=== PATIENT | female | born 1950 | race Caucasian/White ===

== ENCOUNTER → 2018-07-09 | Outpatient (CLI) | payer MEDICARE, OTHER ==
[2014-07-15 12:00] VITALS: BP 101/55
[~2018-07-09] MED LIST: ATOR20TA58 PO; BACL10TA PO; BUPR300T3 PO; CELE200C PO; ESCITALOPRAM OX20 MG PO; LISI2.5T PO; LORA0.5T PO; LOVA10TA PO; NAPR220T70 PO; PANT20TA2 PO; TRAM50TA PO
[2018-07-09 09:31] LABS: ALBUMIN 3.6 g/dL (3.4-5.0); CALCIUM 9.2 mg/dL (8.5-10.1); CREATININE 0.8 mg/dL (0.6-1.0); GFR 71.5
[2018-07-09 09:32] LABS: BASO % 1 % (0-3); EOS # 0.2 x10^3/uL (0.0-0.7); EOS % 5 % (0-3); HEMATOCRIT 41.9 % (36.0-47.0); HEMOGLOBIN 14.7 g/dL (12.0-15.5); LYMPH # 1.6 x10^3/uL (1.0-4.8); LYMPH % 34 % (24-48); MEAN CORPUSCULAR HEMOGLOBIN 31 pg (25-35); MEAN CORPUSCULAR HGB CONC 35 g/dL (31-37); MEAN CORPUSCULAR VOLUME 87 fL (79-100); MONO # 0.5 x10^3/uL (0.0-1.1); MONO % 10 % (0-9); NEUT # 2.2 x10^3uL (1.8-7.7); NEUT % 49 % (31-73); PLATELET COUNT 193 x10^3/uL (140-400); RED BLOOD COUNT 4.79 x10^6/uL (3.50-5.40); RED CELL DISTRIBUTION WIDTH 13.6 % (11.5-14.5); WHITE BLOOD COUNT 4.6 x10^3/uL (4.0-11.0)
[2018-07-09 10:04] LABS: PROTHROMBIN TIME PATIENT 12.9 SEC (11.7-14.0)
--- NOTE | 2018-07-09 13:36 | EKG ---
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
[2018-07-09 13:53] LABS: BILIRUBIN,URINE NEGATIVE (NEG); CLARITY,URINE CLEAR; COLOR,URINE YELLOW; NITRITE,URINE NEGATIVE (NEG); PROTEIN,URINE NEGATIVE (NEG-TRACE); UROBILINOGEN,URINE 0.2 mg/dL (0.2 mg/dL)
[2018-07-09 14:15] LABS: RBC,URINE 0 /HPF (0-2)
[2018-07-09 14:16] LABS: SQUAMOUS EPITHELIAL CELL,UR OCC /LPF
[2018-07-09 14:17] LABS: BACTERIA,URINE FEW /HPF (0-FEW); WBC,URINE RARE /HPF (0-4)
--- NOTE | 2018-07-09 15:51 | RAD ---
Chest, 2 views, 07/09/2018: HISTORY: Preop evaluation for joint surgery Comparison is made to a study from 07/15/2014. The patient's known large hiatal hernia is again noted in the left lower chest. The heart is probably within normal limits in size. There is tortuosity of the thoracic aorta. The pulmonary vascularity is normal. No pulmonary infiltrate is seen. There is a 1.7 cm nodule projected over the anterior mediastinum on the lateral view. It is not clearly visualized on the current PA view. A previous CT chest study of 07/01/2014 demonstrated this nodule in the anterior aspect of the left upper lobe. It appears to be of similar size. This has been previously biopsied. Correlation with those biopsy results is suggested. There is no evidence of pleural fluid. Scattered degenerative changes are present in the spine. IMPRESSION: 1. Large hiatal hernia. 2. Known left upper lobe pulmonary nodule as described above. 3. No acute infiltrates. Electronically signed by: Handy Cline MD (07/09/2018 3:48 PM) [facility]
== END | disposition home or self-care (01) ==
LOC: SURGPAT 13:08
PROVIDERS: ATTEND Orthopaedic Surgery
DX: Z01.818 Encounter for other preprocedural examination (principal); M17.12 Unilateral primary osteoarthritis, left knee; I10 Essential (primary) hypertension; K44.9 Diaphragmatic hernia without obstruction or gangrene; R91.1 Solitary pulmonary nodule
CPT/HCPCS: 36415; 71046; 80048; 81001; 82040; 82306; 85025; 85610; 85651; 85730; 87086; 87641; 93005

== ENCOUNTER 2018-07-31 08:43 | Inpatient (IN) | payer MEDICARE ==
--- NOTE | 2018-07-30 15:05 | PDOC1 ---
History and Physical Date of Admission Date of Admission DATE: 07/31/18 Identification/Chief Complaint Chief Complaint left knee pain Source Source: Chart review History of Present Illness History of Present Illness Aisha is a 67 year old female with bilateral knee pain. The left knee is more painful than the right. She states the left knee has worsened significantly since her last visit. She notes sharp pains in the right knee occasionally, and states it is often painful to weight bear or straighten leg following the sharp pain. The pain is sometimes severe enough that she will fall to the ground. Both knees pop and crack with movement. She denies any numbness or tingling. She received cortisone injections in bilateral knees and hips at her last visit on 01/02/17, which did not provide any symptomatic relief. She finished her last bilateral knee Orthovisc series on 12/05/16. She has also tried taking Meloxicam, which did not provide symptomatic relief. She arrived ambulating without assistive devices. Past Medical History Cardiovascular: HTN, Hyperlipidemia GI: GERD Psych: Anxiety, Depression Past Surgical History Past Surgical History: Cholecystectomy, Hysterectomy Family History Family History: Cancer, Heart Disease Social History Smoke: No ALCOHOL: none Drugs: None Current Medications Current Medications Current Medications Morphine Sulfate 5 mg/Ketorolac Tromethamine 30 mg/Ropivacaine 60 ml/ Epinephrine HCl 0.5 mg/Sodium Chloride 100 ml @ 100 mls/hr 1X ONCE INT ART ; Start 07/31/18 at 06:00; Stop 07/31/18 at 06:59 Fentanyl Citrate (Fentanyl 2ml Vial) 25 mcg PRN Q5MIN PRN IV MILD PAIN; Start 07/31/18 at 07:00; Stop 08/01/18 at 06:59 Fentanyl Citrate (Fentanyl 2ml Vial) 50 mcg PRN Q5MIN PRN IV MODERATE TO SEVERE PAIN; Start 07/31/18 at 07:00; Stop 08/01/18 at 06:59 Morphine Sulfate (Morphine Sulfate) 1 mg PRN Q10MIN PRN IV SEVERE PAIN; Start 07/31/18 at 07:00; Stop 08/01/18 at 06:59 Ringer's Solution 1,000 ml @ 30 mls/hr Q24H IV ; Start 07/31/18 at 07:00; Stop 07/31/18 at 18:59 Lidocaine HCl (Xylocaine-Mpf 1% 2ml Vial) 2 ml PRN 1X PRN ID PRIOR TO IV START ; Start 07/31/18 at 07:00; Stop 08/01/18 at 06:59 Hydromorphone HCl (Dilaudid) 0.5 mg PRN Q10MIN PRN IV SEV PAIN, Second choice; Start 07/31/18 at 07:00; Stop 08/01/18 at 06:59 Prochlorperazine Edisylate (Compazine) 5 mg PACU PRN PRN IV NAUSEA, MRX1; Start 07/31/18 at 07:00; Stop 08/01/18 at 06:59 Active Scripts Active Reported Wellbutrin Xl (Bupropion Hcl) 300 Mg Tab.er.24h 300 Mg PO DAILY Protonix (Pantoprazole Sodium) 20 Mg Tablet.dr 20 Mg PO DAILY Atorvastatin Calcium 20 Mg Tablet 20 Mg PO DAILY Aleve (Naproxen Sodium) 220 Mg Tablet 220 Mg PO BID Escitalopram Oxalate 20 Mg Tablet 20 Mg PO DAILY Lorazepam 0.5 Mg Tablet 1 Mg PO TID Lovastatin 10 Mg Tablet 40 Mg PO DAILY Lisinopril 2.5 Mg Tablet 10 Mg PO DAILY Allergies Allergies: Coded Allergies: No Known Drug Allergies (Unverified , 10/08/13) Physical Exam General: Alert, Oriented X3, Cooperative, No acute distress HEENT: EOMI Lungs: Normal air movement Heart: RRR Abdomen: Soft Extremities: No clubbing, No cyanosis, Normal pulses, Other (Upon inspection of the left knee, there are no masses or detectable effusion. Trace varus alignment. The left knee shows active range of motion from 0-125 degrees. There is crepitus felt with motion. Pain at the extreme of flexion. There is tenderness to palpation along the medial and lateral joint line. The knee is stable to varus and valgus stress, without subluxation or laxity. Quadriceps and hamstring show normal strength of 4+/5, with normal muscle tone. ) Skin: No rashes, No breakdown, No significant lesion Neuro: Normal speech, Sensation intact Psych/Mental Status: Mental status NL, Mood NL Images Images IMAGING REPORT Joint survey, hips knees and ankles Clinical information: Preoperative for total knee arthroplasty Comparison: None. Findings Bones: The angle between the right hip-ankle mechanical axis and the femoral shaft is 5 degrees. The angle between the left hip-ankle mechanical axis and the femoral shaft is 5 degrees. The right hip to ankle alignment shows 3 degrees of varus alignment .The left hip to ankle alignment shows 1 degree of varus alignment. Joints: There is narrowing of the right knee joint medially. There is narrowing of the left knee joint medially. The hips and ankles show minimal degenerative changes. Soft tissue: Normal. Impression: Varus alignment of the right lower extremity Varus alignment of the left lower extremity. The difference between the mechanical axis and femoral shaft anatomic axis is 5 degrees bilaterally. Dictated and Signed Using Voice Recognition Software Nain Oliva MD VTE Prophylaxis Ordered VTE Prophylaxis Devices: Yes VTE Pharmacological Prophylaxi: Yes Assessment/Plan Assessment/Plan left knee osteoarthritis pain. We discussed options for treatment for her right knee osteoarthritis. Since cortisone injections, Meloxicam, and formal physical therapy did not provide symptomatic relief, we discussed a total knee arthroplasty today. She would like to proceed with total knee replacement. We will send her to the [facility] preoperatively, and she will schedule at her convenience. We discussed the risks and benefits of knee replacement including bleeding, infection, post-operative stiffness, instability, kane-prosthetic fracture, DVT and PE. All questions were answered. She would like to proceed with the surgery to improve her pain with activity. She would like to wait until after the wedding on 07.21.2018 to do surgery. Follow up with me 10-14 days after surgery. CONCETTA TORRES Jul 30, 2018 15:05
[~2018-07-31] VITALS: Ht 170 cm; Wt 63.5 kg
[2018-07-31] VITALS (7 sets, daily range): BP systolic 85–114; BP diastolic 52–60
[~2018-07-31 08:43] MED LIST changes: -CELE200C PO; +CELECOXIB 100 MG CAPSULE. PO PRN; +HYDROcodone/APAP 7.5/325MG 1 TAB TABLET PO PRN; +HYDROmorphone 2 MG/ML VIAL IV PRN; +IV RINGERS,LACTATED 1000ML 1,000 ML IV SCH; +LIDOCAINE 1% PF 2 ML VIAL. ID PRN; +MORPHINE SULFATE 2 MG/ML VIAL. IV PRN; +MORPHINE SULFATE 5 MG, KETOROLAC 30MG VIAL 30 MG, ROPIVacaine 0.5% PF 60 ML, EPINEPHrin... INT ART ONE; +PROCHLORPERAZINE 10 MG/2 ML VIAL. IV PRN; +TOBRAMYCIN POWDER 1.2 GM VIAL. ONE; +TRANEXAMIC ACID 1,000 MG in IV NS 50ML -- 1ST BAG INJ ONE; +TRANEXAMIC ACID 1,000 MG in IV NS 50ML -- 2ND BAG INJ ONE; +TV=100ml MORPHINE 5 MG, KETOROLAC 30 MG, ROPIVacaine 0.5% PF 60 ML, EPINEPH... INT ART ONE; +VANCOMYCIN 1 GM VIAL. ONE; +fentaNYL PF VIAL 100 MCG/2 ML VIAL IV PRN
[2018-07-31] MEDS ORDERED: CELE200C PO (09:13)
[2018-07-31] MEDS ORDERED: SCOPOLAMINE 1.5MG PATCH. TD ONE ×2 (09:33→10:00)
[2018-07-31] MEDS ORDERED: FAMOTIDINE 20 MG/2 ML VIAL ONE (10:00)
[2018-07-31] MEDS ORDERED: ONDANSETRON PF 4 MG/2 ML VIAL. ONE (10:00)
[2018-07-31] MEDS ORDERED: DEXAMETHASONE SOD PHOS 20 MG/5 ML VIAL. ONE (10:00)
[2018-07-31] MEDS ORDERED: PROPOFOL 20 ML IV ONE (10:00)
[2018-07-31] MEDS ORDERED: ROCURONIUM 50 MG/5 ML VIAL. ONE (10:00)
[2018-07-31] MEDS ORDERED: LIDOCAINE 1% PF 5 ML VIAL. ONE (10:00)
[2018-07-31] MEDS ORDERED: fentaNYL PF VIAL 100 MCG/2 ML VIAL ONE ×2 (10:00→12:08)
[2018-07-31] MEDS ORDERED: MIDAZOLAM HCL/PF 2 MG/2 ML VIAL. ONE (10:01)
[2018-07-31] MEDS ORDERED: ePHEDrine PF IN SALINE 50 MG/5 ML DISP.SYRIN IV ONE (11:21)
[2018-07-31] MEDS ORDERED: GLYCOPYRROLATE 1 MG/5 ML VIAL. ONE ×2 (12:59)
[2018-07-31] MEDS ORDERED: NEOSTIGMINE METHYLSULFATE 5 MG/5 ML SYRINGE. ONE (12:59)
[2018-07-31] MEDS ORDERED: SEVOFLURANE > 120 MINUTES. IH ONE (12:59)
--- NOTE | 2018-07-31 13:19 | PDOC4 ---
Operative Note Operative Note Date of Procedure: July 31, 2018 Pre-Op Diagnosis: Osteoarthritis left knee Post-Op Diagnosis: Osteoarthritis left knee Procedure: left total knee arthroplasty Surgeon: Kelby Oliva MD Contour Stitcher: Mary Beth Dorantes PA-C Anesthesia: General EBL: 100 mL Specimens Obtained: left knee bone and soft tissue Complications: none Implant Company: [employer] Drains: hemovac plus pain catheter Tourniquet time: 39 Minutes Tourniquet Pressure: 350 mm Hg Indications for Procedure: Arthritis pain unrelieved by nonoperative management Findings: Severe osteoarthritis with bone on bone contact medially and at the patellofemoral joint, with full thickness cartilage loss laterally Implants used: Size 3 left bicruciate stabilized Journey II BCS cobalt chrome femoral component, size 3 left Journey nonporous tibial baseplate, size 3 -4 10 mm left Journey II BCS XLPE articular insert, 32 mm oval Stacy II resurfacing patellar component Procedure in Detail: The patient was identified in the preoperative holding area, and the correct left lower extremity was marked by me. The patient was taken to the operating room where the patient was anesthetized by the Department of Anesthesia. Preoperative antibiotics were given intravenously. Tranexamic acid 1 g was given intravenously for intraoperative hemostasis. A "time-out" procedure was performed. The patient was positioned supine on the operative table with a tourniquet on the upper left thigh. The left lower limb was thoroughly scrubbed , then sterile surgical prep solution was applied, and the limb was draped in sterile fashion. An impervious stockinet and adhesive drape were used such that the skin was entirely covered. An Colbert leg friedman was used. The operating team wore personal exhaust-ventilated hoods. The limb exsanguinated with an Esmarch bandage, and the tourniquet was inflated. A midline skin incision was made with a scalpel using the patella and tibial tubercle as landmarks. Electrocautery was used for hemostasis. My financial sales assistant used rake retractors. A medial parapatellar arthrotomy incision was used with extension into the distal quadriceps tendon. The patella was retracted laterally and Hohmann retractors were now used by my financial sales assistant. Excess synovium, the menisci, and the cruciate ligaments were resected sharply. The patella was assessed and excess synovium and osteophytes around the patellar articulation were removed. The patella was measured with a caliper, cut freehand with a saw using caliper measurements, sized, and then drilled for an oval three-pegged patella component. Periarticular anesthetic injection was used in the suprapatellar pouch and distal quadriceps muscle. Whitesides's line and the transepicondylar axis were marked on the femur. An intra-medullary 5 degree cutting guide was pinned to the femur, and a distal femoral cut was made with an oscillating saw. No additional distal femoral resection was required. My financial sales assistant held Hohmann retractors and an [facility] retractor to protect the medial and lateral collateral ligaments, the patellar tendon, the skin and the other soft tissues. A posterior referencing guide was applied with external rotation of 3 to match Whitesides line. A 5-in-1 Journey II cutting guide was then applied and pinned to the femur. The posterior, anterior, and all chamfer cuts were made with the oscillating saw. An extramedullary guide was pinned to the tibia and rotational alignment and the planned resection thickness assessed. An external alignment rodney was used to verify the planned cut in the varus-valgus plane and regarding posterior slope referencing the tibial tubercle, the tibial shaft, the ankle joint, and the second metatarsal. The upper tibia was cut made with an oscillating saw. My financial sales assistant held Hohmann retractors and a posterior cruciate ligament retractor to protect the medial and lateral collateral ligaments, the patellar tendon, the skin, the peroneal nerve and the other soft tissues. The upper tibia was sized with a trial baseplate. The posterior compartment was cleared of osteophytes and loose bodies. Periarticular anesthetic injection was used in the posterior compartment. The box cut for a posterior stabilized component was made. A preliminary reduction was performed with a trial femur, trial tibial baseplate and trial polyethylene. Soft-tissue balancing was now performed, and extension and rotation of the alignments was checked using a guide rodney in the tibial trial and a guide pin in the femur. No additional releases were required. The stability was assessed using different thicknesses of tibial articular surface to find satisfactory stability and good range of motion. The rotation of the tibial component was marked on the upper tibia. Final trial reduction was now performed verifying patella tracking and tibiofemoral stability and alignment. The tibia preparation was completed with a drill, saw, and fin punch at the previously noted rotation. The final implants were verified and opened. Outer gloves were changed by the operating team. The bone cuts were washed thoroughly with the [place] InterPulse device and dried. I asked Ms. Dorantes to leave the room while the cement was mixed. Two packages of Gonzalez + Nephew Rally HV bone cement were mixed in powdered form with Vancomycin 1gm and Tobramycin 1.2 gm, and then vacuum-mixed with the monomer, and placed into a cement gun. The cut surfaces of the bone were thoroughly dried with Tipton-tip suction and with laparotomy sponges for cement interdigitation. The final components were cemented into place. The knee was kept at full extension while the cement hardened, and excess cement was removed. Tranexamic acid 1 g was redosed intravenously for additional intraoperative hemostasis. The tourniquet was released, and electrocautery was used for hemostasis. A final periarticular anesthetic injection was used for pain relief. Ms. Dorantes scrubbed, hooded, gowned, gloved, and returned to the case. A final check of amvfo-tn-crikor and stability was made, and the polyethylene implant final size was chosen. The polyethylene implant was secured to the tibial baseplate, and the knee was reduced a final time and range of motion and stability was confirmed. Thorough irrigation was used. Hemovac and pain catheter were used.The arthrotomy was closed with interrupted [id number] # 1 PDS suture. The arthrotomy incision was then run with #1 STRATAFIX Symmetric PDS Plus Knotless suture. The subcutaneous tissues were closed with #2-0 Vicryl by my financial sales assistant. The skin was approximated with nadiya by my financial sales assistant. The skin incision was then covered and reinforced with BANDAR single use negative pressure wound therapy dressing Needle and sponge counts were correct. There were no apparent complications. The patient returned to the recovery room in stable condition. KELBY OLIVA MD Jul 31, 2018 13:19
[2018-07-31] MEDS ORDERED: METOCLOPRAMIDE HCL 10 MG/2 ML VIAL. IV PRN (13:30)
[2018-07-31] MEDS ORDERED: MORPHINE SULFATE 4 MG/ML VIAL. IV PRN ×2 (13:30)
[2018-07-31] MEDS ORDERED: fentaNYL PF VIAL 100 MCG/2 ML VIAL IV PRN ×2 (13:30)
[2018-07-31] MEDS ORDERED: PROCHLORPERAZINE 10 MG/2 ML VIAL. IV PRN (13:30)
[2018-07-31] MEDS ORDERED: diphenhydrAMINE HCL 25 MG CAPSULE PO PRN (13:30)
[2018-07-31] MEDS ORDERED: ZOLPIDEM 5 MG TABLET. PO PRN (13:30)
[2018-07-31] MEDS ORDERED: MORPHINE SULFATE 2 MG/ML VIAL. IV PRN (13:30)
[2018-07-31] MEDS ORDERED: MORPHINE SULFATE 10 MG/ML VIAL. IV PRN (13:30)
[2018-07-31] MEDS ORDERED: HYDROcodone/APAP 10/325 1 TAB TABLET PO PRN (13:30)
[2018-07-31] MEDS ORDERED: CALCIUM CARBONATE 500 MG TAB.CHEW PO PRN (13:30)
[2018-07-31] MEDS ORDERED: ACETAMINOPHEN 325 MG TABLET. PO PRN (13:30)
[2018-07-31] MEDS ORDERED: PROCHLORPERAZINE 5 MG TABLET. PO PRN (13:30)
[2018-07-31] MEDS ORDERED: DEXTROSE 50% 25 GM / 50ML DISP.SYRIN. IV PRN (13:30)
[2018-07-31] MEDS ORDERED: 0.9 % SODIUM CHLORIDE 10 ML DISP.SYRIN. IV PRN (13:30)
[2018-07-31] MEDS ORDERED: traMADol 50 MG TABLET PO PRN (13:30)
[2018-07-31] MEDS: fentaNYL PF VIAL 100 MCG/2 ML VIAL IV PRN ×2 (14:02→14:14)
--- NOTE | 2018-07-31 14:21 | RAD ---
KNEE LEFT 2V History: POST OP LEFT KNEE ARTHROPLASTY Comparison: None. Findings: 2 views left knee are submitted. There is left total knee arthroplasty. There are multiple skin clips and drain present in the soft tissues. Impression: 1. There is left total knee arthroplasty. Electronically signed by: Alcon South MD (07/31/2018 2:18 PM) [facility]
[2018-07-31] MEDS: LISINOPRIL 10 MG TABLET PO SCH (15:00)
[2018-07-31] MEDS ORDERED: LORazepam 0.5 MG TABLET PO SCH (15:00)
[2018-07-31] MEDS: buPROPion XL 150 MG TAB.ER.24H. PO SCH (15:00)
[2018-07-31] MEDS: CITALOPRAM 20 MG TABLET. PO SCH (15:10)
[2018-07-31] MEDS: MULTIVITAMIN with MINERAL TABLET. PO SCH (17:05)
[2018-07-31] MEDS: FERROUS SULFATE 325 MG TABLET. PO SCH (17:05)
[2018-07-31] MEDS: POLYETHYLENE GLYCOL 3350 17 GM PACKET. PO SCH (17:05)
[2018-07-31] MEDS: SENNOSIDES/DOCUSATE 8.6/50MG TABLET. PO SCH (17:05)
[2018-07-31] MEDS: PANTOPRAZOLE 40 MG TABLET.DR. PO SCH (17:05)
[2018-07-31] MEDS: IV DEXTROSE 5 %-0.45 % NACL 1,000 ML IV SCH (17:06)
[2018-07-31] MEDS: HYDROcodone/APAP 7.5/325MG 1 TAB TABLET PO PRN ×2 (17:06→22:51)
[2018-07-31] MEDS: KETOROLAC 30MG VIAL 30 MG, BUPIVACAINE MPF 0.25% 20 ML, EPINEPHrine 0.5 MG in TOTAL VOL... INT ART SCH (17:44)
[2018-07-31] MEDS ORDERED: ATORVASTATIN CALCIUM 10 MG TABLET. PO SCH (21:00)
[2018-07-31] MEDS: LORazepam 1 MG TABLET PO SCH (21:00)
[2018-07-31] MEDS: CELECOXIB 100 MG CAPSULE. PO SCH (21:06)
[2018-07-31] MEDS: ATORVASTATIN CALCIUM 20 MG TABLET PO SCH (21:06)
[2018-07-31] MEDS: ASPIRIN ENTERIC COATED 325 MG TABLET.DR. PO SCH (21:06)
[2018-08-01 03:00] VITALS: BP 88/50
[2018-08-01] MEDS: KETOROLAC 30MG VIAL 30 MG, BUPIVACAINE MPF 0.25% 20 ML, EPINEPHrine 0.5 MG in TOTAL VOL... INT ART SCH (05:33)
[2018-08-01] MEDS ORDERED: MAGNESIUM HYDROXIDE 2,400 MG/30 ML ORAL.SUSP. PO PRN (06:00)
[2018-08-01 06:05] VITALS: BP 88/45
[2018-08-01] MEDS: IV DEXTROSE 5 %-0.45 % NACL 1,000 ML IV SCH ×2 (06:06→09:24)
[2018-08-01 07:01] LABS: HEMATOCRIT 34.5 % (36.0-47.0); HEMOGLOBIN 11.9 g/dL (12.0-15.5); RED BLOOD COUNT 3.86 x10^6/uL (3.50-5.40); WHITE BLOOD COUNT 10.7 x10^3/uL (4.0-11.0)
[2018-08-01] MEDS: FERROUS SULFATE 325 MG TABLET. PO SCH ×2 (08:00→17:00)
[2018-08-01] MEDS: ASPIRIN ENTERIC COATED 325 MG TABLET.DR. PO SCH ×2 (08:10→20:59)
[2018-08-01] MEDS: buPROPion XL 150 MG TAB.ER.24H. PO SCH (08:10)
[2018-08-01] MEDS: CITALOPRAM 20 MG TABLET. PO SCH (08:12)
[2018-08-01] MEDS: SENNOSIDES/DOCUSATE 8.6/50MG TABLET. PO SCH (08:12)
[2018-08-01] MEDS: PANTOPRAZOLE 40 MG TABLET.DR. PO SCH (08:12)
[2018-08-01] MEDS: CELECOXIB 100 MG CAPSULE. PO SCH ×2 (08:13→20:59)
[2018-08-01] MEDS: traMADol 50 MG TABLET PO PRN (08:18)
[2018-08-01] MEDS: LORazepam 1 MG TABLET PO SCH ×3 (09:00→21:02)
[2018-08-01] MEDS: POLYETHYLENE GLYCOL 3350 17 GM PACKET. PO SCH ×2 (09:00→21:00)
[2018-08-01] MEDS: LISINOPRIL 10 MG TABLET PO SCH (09:00)
[2018-08-01] MEDS: MULTIVITAMIN with MINERAL TABLET. PO SCH (09:00)
[2018-08-01 11:20] VITALS: BP 89/59
[2018-08-01] MEDS: HYDROcodone/APAP 7.5/325MG 1 TAB TABLET PO PRN (15:43)
--- NOTE | 2018-08-01 15:57 | PDOC ---
PROGRESS NOTES Subjective Subjective Worsening pain in knee since therapy. Per Tammy, pt's BP has been low so she was only getting tramadol. BP better now and will try Lortab. Objective Vital Signs Vital Signs Date Time Temp Pulse Resp B/P (MAP) Pulse Ox O2 Delivery O2 Flow Rate FiO2 08/01/18 15:43 Room Air 08/01/18 11:20 98.7 73 20 89/59 (69) 96 98.7 07/31/18 22:55 2.0 Physical Exam Postop dressing dry and intact. Hemovac and pain catheter in place. Calf soft and nontender with negative Julisa's sign. Good dorsiflexion and plantarflexion with no evidence of neurovascular injury. Labs Laboratory Tests Test 08/01/18 04:35 08/01/18 04:55 Prothrombin Time 14.0 SEC (11.7-14.0) Prothromb Time International Ratio 1.1 (0.8-1.1) White Blood Count 10.7 x10^3/uL (4.0-11.0) Red Blood Count 3.86 x10^6/uL (3.50-5.40) Hemoglobin 11.9 g/dL (12.0-15.5) Hematocrit 34.5 % (36.0-47.0) Mean Corpuscular Volume 89 fL (79-100) Mean Corpuscular Hemoglobin 31 pg (25-35) Mean Corpuscular Hemoglobin Concent 34 g/dL (31-37) Red Cell Distribution Width 13.0 % (11.5-14.5) Platelet Count 169 x10^3/uL (140-400) Laboratory Tests Test 08/01/18 04:35 08/01/18 04:55 Prothrombin Time 14.0 SEC (11.7-14.0) Prothromb Time International Ratio 1.1 (0.8-1.1) White Blood Count 10.7 x10^3/uL (4.0-11.0) Red Blood Count 3.86 x10^6/uL (3.50-5.40) Hemoglobin 11.9 g/dL (12.0-15.5) Hematocrit 34.5 % (36.0-47.0) Mean Corpuscular Volume 89 fL (79-100) Mean Corpuscular Hemoglobin 31 pg (25-35) Mean Corpuscular Hemoglobin Concent 34 g/dL (31-37) Red Cell Distribution Width 13.0 % (11.5-14.5) Platelet Count 169 x10^3/uL (140-400) Imaging Postoperative x-rays reviewed by me and show satisfactory total knee arthroplasty without any apparent complications. Assessment Assessment POD #1 TKA Plan Plan of Care Continue POC including DVT ppx and therapy. Pain control. CONCETTA TORRES Aug 01, 2018 15:57
[2018-08-01 16:00] VITALS: BP 105/52
[2018-08-01] MEDS ORDERED: BISACODYL 10 MG SUPP.RECT. PR PRN (16:00)
[2018-08-01 18:12] VITALS: BP 99/55
[2018-08-01] MEDS: oxyCODONE/APAP 5/325 1 TAB TABLET PO PRN ×2 (18:36→22:43)
[2018-08-01] MEDS: ATORVASTATIN CALCIUM 20 MG TABLET PO SCH (20:59)
[2018-08-01 22:44] VITALS: BP 96/53
[2018-08-02 04:35] LABS: HEMATOCRIT 28.8 % (36.0-47.0)
[2018-08-02 04:43] LABS: PROTHROMBIN TIME PATIENT 14.4 SEC (11.7-14.0)
[2018-08-02 05:41] VITALS: BP 96/52
[2018-08-02] MEDS: oxyCODONE/APAP 5/325 1 TAB TABLET PO PRN (06:42)
[2018-08-02] MEDS: SENNOSIDES/DOCUSATE 8.6/50MG TABLET. PO SCH (08:40)
[2018-08-02] MEDS: FERROUS SULFATE 325 MG TABLET. PO SCH ×2 (08:40→16:48)
[2018-08-02] MEDS: ASPIRIN ENTERIC COATED 325 MG TABLET.DR. PO SCH ×2 (08:40→20:26)
[2018-08-02] MEDS: PANTOPRAZOLE 40 MG TABLET.DR. PO SCH (08:40)
[2018-08-02] MEDS: CELECOXIB 100 MG CAPSULE. PO SCH ×2 (08:41→20:27)
[2018-08-02] MEDS: buPROPion XL 150 MG TAB.ER.24H. PO SCH (08:41)
[2018-08-02] MEDS: CITALOPRAM 20 MG TABLET. PO SCH (08:41)
[2018-08-02] MEDS: LISINOPRIL 10 MG TABLET PO SCH (08:43)
[2018-08-02] MEDS: oxyCODONE/APAP 7.5/325 1 TAB TABLET PO PRN ×5 (09:35→23:50)
[2018-08-02 11:39] VITALS: BP 102/59
[2018-08-02] MEDS: POLYETHYLENE GLYCOL 3350 17 GM PACKET. PO SCH ×2 (12:09→20:27)
[2018-08-02] MEDS: MULTIVITAMIN with MINERAL TABLET. PO SCH (12:10)
--- NOTE | 2018-08-02 12:40 | PDOC ---
PROGRESS NOTES Subjective Subjective Pain controlled. Objective Vital Signs Vital Signs Date Time Temp Pulse Resp B/P (MAP) Pulse Ox O2 Delivery O2 Flow Rate FiO2 08/02/18 12:36 Room Air 08/02/18 11:39 97.7 66 20 102/59 (73) 95 97.7 07/31/18 22:55 2.0 Physical Exam Knee BANDAR dressing with spotty drainage only, and slight bleeding from hemovac site. Calf and thigh soft and NT. Good AROM toes, foot and ankle with negative Homans and no sign of neurovascular injury nor compartment syndrome. Pain catheter and hemovac have been removed. Not yet safely ambulating with walker. Labs Laboratory Tests Test 08/01/18 04:35 08/01/18 04:55 08/02/18 03:50 Prothrombin Time 14.0 SEC (11.7-14.0) 14.4 SEC (11.7-14.0) Prothromb Time International Ratio 1.1 (0.8-1.1) 1.2 (0.8-1.1) White Blood Count 10.7 x10^3/uL (4.0-11.0) Red Blood Count 3.86 x10^6/uL (3.50-5.40) Hemoglobin 11.9 g/dL (12.0-15.5) 10.0 g/dL (12.0-15.5) Hematocrit 34.5 % (36.0-47.0) 28.8 % (36.0-47.0) Mean Corpuscular Volume 89 fL (79-100) Mean Corpuscular Hemoglobin 31 pg (25-35) Mean Corpuscular Hemoglobin Concent 34 g/dL (31-37) 35 g/dL (31-37) Red Cell Distribution Width 13.0 % (11.5-14.5) Platelet Count 169 x10^3/uL (140-400) Laboratory Tests Test 08/02/18 03:50 Hemoglobin 10.0 g/dL (12.0-15.5) Hematocrit 28.8 % (36.0-47.0) Mean Corpuscular Hemoglobin Concent 35 g/dL (31-37) Prothrombin Time 14.4 SEC (11.7-14.0) Prothromb Time International Ratio 1.2 (0.8-1.1) Imaging Postoperative knee x-rays report reviewed, images independently reviewed. Satisfactory TKA alignment with no apparent complications. Assessment Assessment POD 2 after TKA Plan Plan of Care Continue PT and DVT prophylaxis. Discharge planning for tomorrow. KELBY CAO MD Aug 02, 2018 12:40
--- NOTE | 2018-08-02 15:09 | PATHOLOGY ---
[facility] Accession Number: [id number] . 01 Material submitted: . LEFT KNEE BONE AND SOFT TISSUE . 01 Clinical history: . Osteoarthritis . 02 Diagnosis: Segments of bone and soft tissue, left knee arthroplasty: - Focally advanced degenerative arthritis. (JPM:[facility] 08/02/2018) QTP/08/02/2018 . 02 Electronically signed: . Demarco Coley MD, Pathologist NPI- [id number] . 01 Gross description: . Received in formalin labeled "Aisha Mcknight, left knee bone and soft tissue," are multiple segments of bone, including tibial plateau, measuring 13.6 x 10.4 x 2.7 cm in aggregate dimensions. Soft tissue and meniscus are present. Sectioning shows granluarity and focal marked thinning of the articular surface. Special Procedures Nurse bone and soft tissue are submitted in cassette A1, following decalcification. (DAC; 08/01/2018) XDC/XDC . 02 Pathologist provided ICD-10: M17.12 . 02 CPT . 589294, [id number] Specimen Comment: A courtesy copy of this report has been sent to Specimen Comment: [phone], . Specimen Comment: Report sent to / DR MATTHEW Performed at: 01 [facility] [address], [place] [id number] MD Darian Carter MD Phone: [phone] Performed at: 02 [facility] [address] [place], [place] [id number] MD Demarco Coley MD Phone: [phone]
[2018-08-02] MEDS: LORazepam 1 MG TABLET PO PRN (16:47)
[2018-08-02 18:04] VITALS: BP 106/54
[2018-08-02] MEDS: ATORVASTATIN CALCIUM 20 MG TABLET PO SCH (20:26)
[2018-08-03] MEDS: traMADol 50 MG TABLET PO PRN (01:05)
[2018-08-03] MEDS: LORazepam 1 MG TABLET PO PRN (01:32)
[2018-08-03 04:46] LABS: HEMATOCRIT 28.5 % (36.0-47.0); HEMOGLOBIN 10.1 g/dL (12.0-15.5)
[2018-08-03 05:00] LABS: PROTHROMBIN TIME PATIENT 14.3 SEC (11.7-14.0)
[2018-08-03 06:18] VITALS: BP 98/50
[2018-08-03] MEDS: LISINOPRIL 10 MG TABLET PO SCH (07:27)
[2018-08-03] MEDS: oxyCODONE/APAP 7.5/325 1 TAB TABLET PO PRN ×2 (07:57→16:19)
[2018-08-03] MEDS: CITALOPRAM 20 MG TABLET. PO SCH (07:58)
[2018-08-03] MEDS: POLYETHYLENE GLYCOL 3350 17 GM PACKET. PO SCH (07:58)
[2018-08-03] MEDS: CELECOXIB 100 MG CAPSULE. PO SCH (07:58)
[2018-08-03] MEDS: buPROPion XL 150 MG TAB.ER.24H. PO SCH (07:59)
[2018-08-03] MEDS: ASPIRIN ENTERIC COATED 325 MG TABLET.DR. PO SCH (07:59)
[2018-08-03] MEDS: FERROUS SULFATE 325 MG TABLET. PO SCH (07:59)
[2018-08-03] MEDS: PANTOPRAZOLE 40 MG TABLET.DR. PO SCH (07:59)
[2018-08-03] MEDS: SENNOSIDES/DOCUSATE 8.6/50MG TABLET. PO SCH (07:59)
[2018-08-03] MEDS: MULTIVITAMIN with MINERAL TABLET. PO SCH (07:59)
[2018-08-03] MEDS: HYDROcodone/APAP 7.5/325MG 1 TAB TABLET PO PRN (12:15)
[2018-08-03] MEDS ORDERED: ASPI325T11 PO (15:11)
[2018-08-03] MEDS ORDERED: FERR325T14 PO (15:11)
[2018-08-03] MEDS ORDERED: OXYC-323 PO (15:17)
[2018-08-03] MEDS ORDERED: CELE200C PO (15:20)
[2018-08-03 15:25] VITALS: BP 99/58
--- NOTE | 2018-08-03 16:22 | PDOC3 ---
Discharge Summary Visit Information Date of Admission: Jul 31, 2018 Date of Discharge: Aug 03, 2018 Admitting Diagnosis: knee osteoarthritis pain Brief Hospital Course Allergies Allergies Coded Allergies Type Severity Reaction Last Updated Verified No Known Drug Allergies 07/31/18 No Vital Signs Vital Signs Date Time Temp Pulse Resp B/P (MAP) Pulse Ox O2 Delivery O2 Flow Rate FiO2 08/03/18 15:25 97.2 72 18 99/58 (72) 94 Room Air 97.2 Lab Results Laboratory Tests Test 08/02/18 03:50 08/03/18 04:15 Hemoglobin 10.0 g/dL (12.0-15.5) 10.1 g/dL (12.0-15.5) Hematocrit 28.8 % (36.0-47.0) 28.5 % (36.0-47.0) Mean Corpuscular Hemoglobin Concent 35 g/dL (31-37) 35 g/dL (31-37) Prothrombin Time 14.4 SEC (11.7-14.0) 14.3 SEC (11.7-14.0) Prothromb Time International Ratio 1.2 (0.8-1.1) 1.2 (0.8-1.1) Laboratory Tests Test 08/03/18 04:15 Hemoglobin 10.1 g/dL (12.0-15.5) Hematocrit 28.5 % (36.0-47.0) Mean Corpuscular Hemoglobin Concent 35 g/dL (31-37) Prothrombin Time 14.3 SEC (11.7-14.0) Prothromb Time International Ratio 1.2 (0.8-1.1) Brief Hospital Course 67 year old who presented with knee osteoarthritis, for elective total knee arthroplasty. The patient underwent total knee arthroplasty under general anesthesia the day of admission. Perioperative antibiotics and DVT prophylaxis were used. Postoperatively physical therapy and case management were consulted. The patient progressed and is stable for discharge. Discharge Information Condition at Discharge: Stable Follow Up: Weeks (2) Disposition/Orders: D/C to Home Scheduled Aspirin (Aspirin Ec), 1 TAB PO BID, (Reported) Atorvastatin Calcium (Atorvastatin Calcium), 20 MG PO DAILY, (Reported) Bupropion Hcl (Wellbutrin Xl), 300 MG PO DAILY, (Reported) Celecoxib (Celebrex), 2 CAP PO ONCE, (Reported) Celecoxib (Celebrex), 1 CAP PO DAILY, (Reported) Escitalopram Oxalate (Escitalopram Oxalate), 20 MG PO DAILY, (Reported) Ferrous Sulfate (Ferrous Sulfate), 1 TAB PO DAILY, (Reported) Lisinopril (Lisinopril), 10 MG PO DAILY, (Reported) Lorazepam (Lorazepam), 1 MG PO TID, (Reported) Lovastatin (Lovastatin), 40 MG PO DAILY, (Reported) Naproxen Sodium (Aleve), 220 MG PO BID, (Reported) Pantoprazole Sodium (Protonix), 20 MG PO DAILY, (Reported) Scheduled PRN Oxycodone/Apap 5-325 (Percocet 5-325 Mg Tablet), 1-2 TAB PO PRN Q4HRS PRN for PAIN, (Reported) Patient Instructions Patient Instructions Patient Instructions Continue to WBAT with walker. Keep dressing dry and intact. F/U with [facility] in 10-14 days. Call for appointment. Physical therapy for TKA Continue DVT prophylaxis. CONCETTA TORRES Aug 03, 2018 16:22
--- NOTE | 2018-08-03 16:33 | PDOC ---
PROGRESS NOTES Subjective Subjective Doing well, pain controlled. Objective Vital Signs Vital Signs Date Time Temp Pulse Resp B/P (MAP) Pulse Ox O2 Delivery O2 Flow Rate FiO2 08/03/18 15:25 97.2 72 18 99/58 (72) 94 Room Air 97.2 07/31/18 22:55 2.0 Physical Exam BANDAR dressing intact and dry. Calf and thigh soft and NT. Good AROM toes, foot and ankle with negative Homans sign and no sign of neurovascular injury nor compartment syndrome. Labs Laboratory Tests Test 08/02/18 03:50 08/03/18 04:15 Hemoglobin 10.0 g/dL (12.0-15.5) 10.1 g/dL (12.0-15.5) Hematocrit 28.8 % (36.0-47.0) 28.5 % (36.0-47.0) Mean Corpuscular Hemoglobin Concent 35 g/dL (31-37) 35 g/dL (31-37) Prothrombin Time 14.4 SEC (11.7-14.0) 14.3 SEC (11.7-14.0) Prothromb Time International Ratio 1.2 (0.8-1.1) 1.2 (0.8-1.1) Laboratory Tests Test 08/03/18 04:15 Hemoglobin 10.1 g/dL (12.0-15.5) Hematocrit 28.5 % (36.0-47.0) Mean Corpuscular Hemoglobin Concent 35 g/dL (31-37) Prothrombin Time 14.3 SEC (11.7-14.0) Prothromb Time International Ratio 1.2 (0.8-1.1) Assessment Assessment POD #3 TKA Plan Plan of Care Continue PT and DVT prophylaxis. Discharge this afternoon after therapy. Home with outpatient PT. KELBY CAO MD Aug 03, 2018 16:33
== END 2018-08-03 16:45 | disposition home or self-care (01) | DRG 470 ==
LOC: OPSVCIP 08:43 → 4 SOUTHEST 14:49
PROVIDERS: ADMIT Orthopaedic Surgery; ATTEND Orthopaedic Surgery
PROC: 0SRD069 Replacement of Left Knee Joint with Oxidized Zirconium on Polyethylene Synthetic Substitute, Cemented, Open Approach (ICD-10-PCS; principal; 2018-07-31 11:00)
DX: M17.12 Unilateral primary osteoarthritis, left knee (principal); I10 Essential (primary) hypertension; E78.5 Hyperlipidemia, unspecified; K21.9 Gastro-esophageal reflux disease without esophagitis; F32.9 Major depressive disorder, single episode, unspecified; F41.9 Anxiety disorder, unspecified; Z79.899 Other long term (current) drug therapy; Z90.710 Acquired absence of both cervix and uterus; Z90.49 Acquired absence of other specified parts of digestive tract; Z82.49 Family history of ischemic heart disease and other diseases of the circulatory system; Z80.9 Family history of malignant neoplasm, unspecified
CPT/HCPCS: 36415; 73560; 85014; 85018; 85027; 85610; 86850; 86900; 86901; 88305; 88311; A7015; C1713; J0171; J0690; J0780; J1100; J1885; J2250; J2270; J2405; J2704; J2710; J2765; J2795; J3010; J3260; J3370; J3490; J7030; J7120; Q0164; 97116; 97150; 97530; 97535; A4461; C1769

== ENCOUNTER → 2019-07-25 | Day surgery (SDC) | payer MEDICARE ==
[~2019-07-25] MED LIST changes: +ASPI325T11 PO; +CELE200C PO; -CELECOXIB 100 MG CAPSULE. PO PRN; +FERR325T14 PO; -HYDROcodone/APAP 7.5/325MG 1 TAB TABLET PO PRN; -HYDROmorphone 2 MG/ML VIAL IV PRN; -LIDOCAINE 1% PF 2 ML VIAL. ID PRN; -MORPHINE SULFATE 2 MG/ML VIAL. IV PRN; -MORPHINE SULFATE 5 MG, KETOROLAC 30MG VIAL 30 MG, ROPIVacaine 0.5% PF 60 ML, EPINEPHrin... INT ART ONE; +OXYC1TAB15 PO; -PROCHLORPERAZINE 10 MG/2 ML VIAL. IV PRN; +TEMA30CA6 PO; -TOBRAMYCIN POWDER 1.2 GM VIAL. ONE; -TRANEXAMIC ACID 1,000 MG in IV NS 50ML -- 1ST BAG INJ ONE; -TRANEXAMIC ACID 1,000 MG in IV NS 50ML -- 2ND BAG INJ ONE; -TV=100ml MORPHINE 5 MG, KETOROLAC 30 MG, ROPIVacaine 0.5% PF 60 ML, EPINEPH... INT ART ONE; -VANCOMYCIN 1 GM VIAL. ONE; -fentaNYL PF VIAL 100 MCG/2 ML VIAL IV PRN
[2019-07-25 14:15] VITALS: BP 116/61
--- NOTE | 2019-07-25 23:29 | HP ---
ADMIT DATE: 07/25/2019 REFERRING PHYSICIAN: Dr. Dmitry Patricio. REASON FOR CONSULTATION: Epigastric pain, history of hiatal hernia. HISTORY OF PRESENT ILLNESS: This is a 68-year-old female with past medical history significant for arthritis, depression, gastroesophageal reflux disease, hypertension, hyperlipidemia who is status post cholecystectomy, hysterectomy, joint replacement surgery and eye surgery and is seen with persistent epigastric pain, belching, bloating, and anorexia. She has had 3 attacks of abdominal pain, nausea, vomiting, and chest pain. Cardiac workup has been normal. CT scan did reveal previous large hiatal hernia and with this endoscopy to assess for paraesophageal component is recommended. PAST MEDICAL HISTORY: Hyperlipidemia, hypertension, gastroesophageal reflux disease. ALLERGIES: None. MEDICATIONS: Atorvastatin, Wellbutrin, lisinopril, lorazepam, Protonix, and Restoril. FAMILY HISTORY: MIs with her mother and father, brother and grandfather, liver disease. SOCIAL HISTORY: She is a nonsmoker and nondrinker. PAST SURGICAL HISTORY: Status post cholecystectomy, hysterectomy, joint replacement surgery, eye surgery. REVIEW OF SYSTEMS: Per records. PHYSICAL EXAMINATION: GENERAL: Reveals a well-nourished, well-developed female, alert, cooperative, in no acute distress. VITAL SIGNS: Pulse is 70, respiratory rate is 15, blood pressure is 120/79. HEENT: Reveals normocephalic, atraumatic head. Pupils and extraocular muscles are not tested. Sclerae are anicteric. NECK: Supple. LUNGS: Clear. CARDIOVASCULAR: Reveals an S1, S2 without S3, S4 or appreciable murmur. ABDOMEN: Reveals a soft abdomen, normal bowel sounds, without appreciable hepatosplenomegaly. EXTREMITIES: Reveals no cyanosis, clubbing or edema. IMPRESSION AND RECOMMENDATIONS: Epigastric pain with history of hiatal hernia. Upper endoscopy to assess for paraesophageal component was recommended. Risks and benefits of procedure including risk of hemorrhage and perforation have been discussed. The patient is willing to proceed at this time. TONYA DEE MD DR: KAROL/sylvain JOB#: [id number] / [id number]
== END ==
LOC: ENDOS 13:15
PROVIDERS: ATTEND Internal Medicine Gastroenterology
DX: R10.13 Epigastric pain (principal); K44.9 Diaphragmatic hernia without obstruction or gangrene; K21.9 Gastro-esophageal reflux disease without esophagitis; I10 Essential (primary) hypertension; E78.00 Pure hypercholesterolemia, unspecified; F32.9 Major depressive disorder, single episode, unspecified; F41.9 Anxiety disorder, unspecified; E66.3 Overweight; Z68.28 Body mass index [BMI] 28.0-28.9, adult; Z90.49 Acquired absence of other specified parts of digestive tract; Z87.39 Personal history of other diseases of the musculoskeletal system and connective tissue; Z98.42 Cataract extraction status, left eye; Z98.41 Cataract extraction status, right eye; Z90.710 Acquired absence of both cervix and uterus; Z72.89 Other problems related to lifestyle; Z96.1 Presence of intraocular lens
CPT/HCPCS: 43235

== ENCOUNTER 2019-11-27 18:58 | Inpatient (IN) | payer MEDICARE ==
[~2019-11-27] VITALS: Ht 162.6 cm; Wt 79.1 kg
[~2019-11-27 18:58] MED LIST changes: -IV RINGERS,LACTATED 1000ML 1,000 ML IV SCH
[2019-11-27] MEDS ORDERED: MORPHINE SULFATE 10 MG/ML VIAL. IM ONE (20:45)
[2019-11-27] MEDS ORDERED: methylPREDNISolone SOD SUCC PF 125 MG/2 ML VIAL. IM ONE (20:45)
[2019-11-27] MEDS ORDERED: ONDANSETRON PF 4 MG/2 ML VIAL. ONE (22:00)
[2019-11-27] MEDS ORDERED: ONDANSETRON PF 4 MG/2 ML VIAL. IV PRN (22:30)
[2019-11-27] MEDS ORDERED: MORPHINE SULFATE 4 MG/ML VIAL. IV PRN (22:30)
--- NOTE | 2019-11-27 22:35 | PHYS DOC ---
Past Medical History Past Medical History: Anxiety Past Surgical History: Cholecystectomy, Hysterectomy, Knee Replacement, Other Additional Past Surgical Histo: Cataract surgery Smoking Status: Former Smoker Alcohol Use: None Drug Use: None Adult General Chief Complaint Chief Complaint: KNEE SWELLING HPI HPI Patient is a 69 year old female with a history of anxiety who presents the ED today complaining of 10 out of 10 left knee pain that began sometime this afternoon, patient denies any injury. Reports pain is worse on flexion of the knee. She reports she feels the knee is swollen. She states she had a similar episode 6 months ago and was admitted for intractable pain and ended up having knee revision. Review of Systems Review of Systems Constitutional: Denies fever or chills [] Musculoskeletal: Reports knee pain Integument: Denies rash or skin lesions [] Neurologic: Denies headache, focal weakness or sensory changes [] All other systems were reviewed and found to be within normal limits, except as documented in this note. Current Medications Current Medications Current Medications Medications (Trade) Dose Ordered Sig/Stu Start Time Stop Time Status Last Admin Dose Admin Methylprednisolone Sodium Succinate (SOLU-Medrol 125MG VIAL) 125 mg 1X ONCE 11/27/19 20:45 11/27/19 20:46 DC 11/27/19 21:00 125 MG Morphine Sulfate (Morphine Sulfate) 4 mg PRN Q2HR PRN 11/27/19 22:30 11/28/19 22:29 UNV Ondansetron HCl (Zofran) 4 mg PRN Q8HRS PRN 11/27/19 22:30 11/28/19 22:29 UNV Allergies Allergies Allergies Coded Allergies Type Severity Reaction Last Updated Verified No Known Drug Allergies 07/25/19 No Physical Exam Physical Exam Constitutional: Well developed, well nourished, no acute distress, non-toxic appearance. [] Skin: Warm, dry, no erythema, no rash. [] Back: No tenderness, no CVA tenderness. [] Extremities: Left knee with no obvious deformity, old healed well approximated surgical incision noted on the anterior aspect of the knee, no signs of infection. Limited flexion of the left knee due to pain. Limited range of motion due to pain. +2 left pedal pulse. Cap refill less than 2 seconds the left lower extremity. Sensation intact. Neurologic: Alert and oriented X 3, normal motor function, normal sensory function, no focal deficits noted. [] Psychologic: Affect normal, judgement normal, mood normal. [] Current Patient Data Vital Signs Vital Signs Date Time Temp Pulse Resp B/P (MAP) Pulse Ox O2 Delivery O2 Flow Rate FiO2 11/27/19 21:01 18 11/27/19 20:57 98.5 64 136/64 (88) 99 Room Air 98.5 EKG EKG [] Radiology/Procedures Radiology/Procedures [] Course & Med Decision Making Course & Med Decision Making Pertinent Labs and Imaging studies reviewed. (See chart for details) This is a 69-year-old female patient presenting to the ED today with left knee pain that began this afternoon, no known injury. Left knee x-rays interpreted by Dr. Ty are negative for any acute findings. Patient was given morphine with some relief. X-ray results were provided to patient and family, patient and family states patient cannot be discharged because last time she had similar event she was admitted and ended up with left knee revision. They are requesting admission. Spoke with Dr. Hines who accepted patient for admission on behalf of Dr. Matthew. Routine consult placed for orthopedic doctor. Janet Disclaimer Dragon Disclaimer This electronic medical record was generated, in whole or in part, using a voice recognition dictation system. Departure Departure Impression: Primary Impression: Intractable neuropathic pain of left knee Disposition: ADMITTED INPATIENT Condition: STABLE Referrals: JOVANI MATTHEW MD (PCP) JERRI MALONEY APRN Nov 27, 2019 22:35
--- NOTE | 2019-11-27 22:40 | RAD ---
EXAM: AP, oblique and lateral views of the left knee DATE: 11/27/2019 8:24 PM INDICATION: Left knee pain COMPARISON: 06/06/2019 FINDINGS: Changes of left total knee arthroplasty are in stable alignment without definite hardware complication. Moderate left knee joint effusion. No acute fracture or dislocation. IMPRESSION: 1. Changes of left total knee arthroplasty without definite hardware complication or fracture. 2. Moderate left knee joint effusion. Electronically signed by: César Soares MD (11/27/2019 10:37 PM) [id number]
[2019-11-27] MEDS ORDERED: PROCHLORPERAZINE 10 MG/2 ML VIAL. ONE (22:59)
[2019-11-27 23:00] VITALS: BP 142/48
[2019-11-27] MEDS ORDERED: PROCHLORPERAZINE 10 MG/2 ML VIAL. IV ONE (23:30)
[2019-11-28] MEDS ORDERED: ZOLPIDEM 5 MG TABLET. PO PRN
--- NOTE | 2019-11-28 | NUR ---
The patient, HUI LEVY, 69 y/o, F admitted by JOVANI MATTHEW MD, was given written information regarding hospital policies, unit procedures and contact persons. patient arrived to room via ED bed assisted by ED staff member. Valuables were checked and noted. Patient is laying in bed watching TV at this time. Patient denies any needs at this time. This RN will continue to monitor the patient at this time.
[2019-11-28 03:00] VITALS: BP 98/51
[2019-11-28 07:00] VITALS: BP 104/49
[2019-11-28] MEDS ORDERED: TEMA15CA PO (07:30)
[2019-11-28] MEDS ORDERED: LISI10TA2 PO (07:30)
[2019-11-28] MEDS ORDERED: TEMAZEPAM 15 MG CAPSULE PO PRN (08:30)
[2019-11-28] MEDS ORDERED: LORazepam 0.5 MG TABLET PO PRN (08:30)
--- NOTE | 2019-11-28 08:30 | PDOC1 ---
H & P. HPI: Ms. Mcknight is a 69 yo female with PMH of hypertension, hyperlipidemia, arthritis of both knees, status post left knee replacement in July 2018, depression, anxiety, GERD, who presents to the emergency room yesterday evening for intractable left knee pain. She reports sudden excruciating worsening of knee pain yesterday. She had a similar episode of knee pain and May 2019 and was admitted for this. She was evaluated by Dr. Oliva and found to have a left t endon rupture which was repaired surgically. Due to the severity of her pain, she was admitted yesterday for Ortho evaluation. ROS: Constitutional: Denies fever, fatigue, chills HEENT: Denies sore throat, vision changes Cardio: Denies chest pain, dyspnea with exertion, syncope, palpitations, edema Pulmonary: Denies shortness of breath, cough, wheezing GI: Denies nausea, vomiting, diarrhea, constipation : Denies dysuria, frequency, urgency, incontinence MSK: Admits L knee pain Skin: Denies new lesions Neuro: Denies weakness, paresthesias PMH: As above FAMILY HX: Noncontributory SOCIAL HX: Never smoker, no significant alcohol or drug use. SURGICAL HX: She has had a prior cholecystectomy, cataracts, hysterectomy, left knee replacement 07/2018, L quad tendon repair 06/06 MEDS: Reviewed and reconciled ALLERGIES: Reviewed PE: Alert, oriented, no acute distress EOMI, sclera non-icteric Neck supple Normal rate Nonlabored respirations L knee +effusion, tender to palpation over lateral aspect, no erythema, heat No edema in lower extremities, cyanosis. Calm, cooperative, mood/affect within normal limits ASSESSMENT & PLAN: Intractable L knee pain s/p L TKR 08/05 and L quad tendon repair 06/06 HTN HLD Depression Anxiety GERD Home meds have been resumed Ortho consulted Pain control BALDEMAR DIGGS MD Nov 28, 2019 08:30
[2019-11-28] MEDS ORDERED: LISINOPRIL 10 MG TABLET PO SCH (09:00)
--- NOTE | 2019-11-28 09:38 | NUR ---
SW following. Discussed with RN, pt from home. Dr. Oliva has been consulted for the knee pain. Pt went to [facility] in May of 2019. RN advised no SW needs at this time. SW will continue to follow.
[2019-11-28] MEDS ORDERED: HYDROcodone/APAP 7.5/325MG 1 TAB TABLET PO PRN ×2 (10:45)
[2019-11-28] MEDS ORDERED: oxyCODONE/APAP 5/325 1 TAB TABLET PO PRN ×2 (10:45)
[2019-11-28 11:00] VITALS: BP 108/64
[2019-11-28] MEDS: PANTOPRAZOLE 40 MG TABLET.DR. PO SCH (11:50)
[2019-11-28] MEDS: CITALOPRAM 20 MG TABLET. PO SCH (11:51)
[2019-11-28] MEDS: ATORVASTATIN CALCIUM 20 MG TABLET PO SCH (11:51)
[2019-11-28] MEDS: buPROPion XL 150 MG TAB.ER.24H. PO SCH (11:51)
[2019-11-28 12:14] LABS: ALBUMIN 3.7 g/dL (3.4-5.0); ALBUMIN/GLOBULIN RATIO 1.2 (1.0-1.7); C-REACTIVE PROTEIN 2.4 mg/L (0-3.3); CALCIUM 9.1 mg/dL (8.5-10.1); CREATININE 0.9 mg/dL (0.6-1.0); GFR 62.1; POTASSIUM 4.3 mmol/L (3.5-5.1); TOTAL BILIRUBIN 0.7 mg/dL (0.2-1.0); TOTAL PROTEIN 6.7 g/dL (6.4-8.2)
[2019-11-28 12:16] LABS: PROTHROMBIN TIME PATIENT 12.8 SEC (11.7-14.0)
--- NOTE | 2019-11-28 13:43 | RAD ---
Soft tissue ultrasound of the left extremity without comparison for status post left knee surgery, left knee swelling. TECHNIQUE AND FINDINGS: Real-time grayscale and color Doppler evaluation of the left knee is performed. There is complex fluid collection within the deep soft tissues adjacent to the bone, involving the medial, superior, and lateral aspects of the knee. This may be intra-articular. On the medial aspect of the knee there is an anechoic simple component. IMPRESSION: 1. Complex deep fluid collection, possibly a complex suprapatellar effusion. Electronically signed by: Skyler Silva MD (11/28/2019 1:40 PM) [id number]
[2019-11-28 15:00] VITALS: BP 93/51
[2019-11-28] MEDS: oxyCODONE/APAP 5/325 1 TAB TABLET PO PRN ×2 (16:13→22:03)
--- NOTE | 2019-11-28 17:13 | PDOC2 ---
CONSULT Date of Consult Date of Consult DATE: 11/28/19 TIME: 17:04 Reason for Consult Reason for Consult: Chronic severe LEFT knee pain Referring Physician Referring Physician: Ruchi Hines MD Identification/Chief Complaint Chief Complaint LEFT knee pain, swelling. Source Source: Chart review, Patient History of Present Illness Reason for Visit: Patient underwent initial left knee total knee arthroplasty July [address] Oliva. In May 2019 the surgeon performed a partial quadricep tendon repair regarding her acute severe knee pain at that time. She indicates chronic ongoing daily knee pain with recent worsening and swelling in the superior lateral knee. She denies acute injury, fevers, chills or sense of illness otherwise. Past Medical History Cardiovascular: HTN, Hyperlipidemia GI: GERD Psych: Anxiety, Depression Past Surgical History Past Surgical History: Cholecystectomy, Total knee replacement (left knee TKA July 2018. Subsequent repair of partial quadriceps tendon same knee May 2019), Hysterectomy Family History Family History: Cancer, Heart Disease Social History No ALCOHOL: none Drugs: None Current Medications Current Medications Current Medications Morphine Sulfate (Morphine Sulfate) 5 mg 1X ONCE IM Last administered on 11/27/19at 21:01; Start 11/27/19 at 20:45; Stop 11/27/19 at 20:46; Status DC Methylprednisolone Sodium Succinate (SOLU-Medrol 125MG VIAL) 125 mg 1X ONCE IM Last administered on 11/27/19at 21:00; Start 11/27/19 at 20:45; Stop 11/27/19 at 20:46; Status DC Ondansetron HCl (Zofran) 4 mg STK-MED ONCE .ROUTE ; Start 11/27/19 at 22:00; Stop 11/27/19 at 22:00; Status DC Ondansetron HCl (Zofran) 4 mg PRN Q8HRS PRN IV NAUSEA/VOMITING 1ST CHOICE Last administered on 11/27/19at 23:24; Start 11/27/19 at 22:30; Stop 11/28/19 at 22:29 Morphine Sulfate (Morphine Sulfate) 4 mg PRN Q2HR PRN IV SEVERE PAIN 7-10 Last administered on 11/28/19at 02:57; Start 11/27/19 at 22:30; Stop 11/28/19 at 22:29 Prochlorperazine Edisylate (Compazine) 10 mg 1X ONCE IV Last administered on 11/27/19at 23:00; Start 11/27/19 at 23:30; Stop 11/27/19 at 23:31; Status DC Prochlorperazine Edisylate (Compazine) 10 mg STK-MED ONCE .ROUTE ; Start 11/27/19 at 22:59; Stop 11/27/19 at 22:59; Status DC Zolpidem Tartrate (Ambien) 5 mg PRN QHS PRN PO INSOMNIA Last administered on 11/28/19at 00:14; Start 11/28/19 at 00:00 Atorvastatin Calcium (Lipitor) 20 mg DAILY PO Last administered on 11/28/19at 11:51; Start 11/28/19 at 09:00 Lisinopril (Prinivil) 10 mg DAILY PO Last administered on 11/28/19at 11:51; Start 11/28/19 at 09:00 Lorazepam (Ativan) 1 mg PRN TID PRN PO anxiety; Start 11/28/19 at 08:30 Temazepam (Restoril) 15 mg PRN QHS PRN PO INSOMNIA; Start 11/28/19 at 08:30 Bupropion HCl (Wellbutrin Xl) 300 mg DAILY PO Last administered on 11/28/19at 11:51; Start 11/28/19 at 09:00 Citalopram Hydrobromide (CeleXA) 40 mg DAILY PO Last administered on 11/28/19at 11:51; Start 11/28/19 at 09:00 Pantoprazole Sodium (Protonix) 40 mg DAILYAC PO Last administered on 11/28/19at 11:50; Start 11/28/19 at 09:00 Acetaminophen/ Hydrocodone Bitart (Lortab 7.5/325) 1 tab PRN Q4HRS PRN PO MILD; Start 11/28/19 at 10:45 Oxycodone/ Acetaminophen (Percocet 5/325) i-ii po q4hrs prn pain PRN Q4HRS PRN PO PAIN; Start 11/28/19 at 10:45; Status UNV Acetaminophen/ Hydrocodone Bitart (Lortab 7.5/325) 2 tab PRN Q4HRS PRN PO MODERATE PAIN; Start 11/28/19 at 10:45 Oxycodone/ Acetaminophen (Percocet 5/325) 1 tab PRN Q4HRS PRN PO PAIN MODERATE 2ND CHOICE Last administered on 11/28/19at 16:13; Start 11/28/19 at 10:45 Oxycodone/ Acetaminophen (Percocet 5/325) 2 tab PRN Q4HRS PRN PO SEVERE PAIN; Start 11/28/19 at 10:45 Active Scripts Active Reported Temazepam 15 Mg Capsule 15 Mg PO HS PRN MDD 30 mg Lisinopril 10 Mg Tablet 10 Mg PO DAILY Wellbutrin Xl (Bupropion Hcl) 300 Mg Tab.er.24h 300 Mg PO DAILY Protonix (Pantoprazole Sodium) 20 Mg Tablet.dr 20 Mg PO DAILY Atorvastatin Calcium 20 Mg Tablet 20 Mg PO DAILY Escitalopram Oxalate 20 Mg Tablet 20 Mg PO DAILY Lorazepam 0.5 Mg Tablet 1 Mg PO TID Allergies Allergies: Coded Allergies: No Known Drug Allergies (Unverified , 07/25/19) Physical Exam General: Alert, Oriented X3, mild distress HEENT: Atraumatic, Mucous membr. moist/pink Lungs: Normal air movement Extremities: No clubbing, No cyanosis, No edema, Normal pulses Skin: No rashes, No breakdown Neuro: Normal speech, Normal tone, Sensation intact MUSCULOSKELETAL: Abnormal exam of left (knee. Extensor mechanism intact. There is local effusion suprapatellar in the knee predominantly notable at the vastus lateralis. Cannot exclude a defect of the fascia with the effusion. Varus and valgus stress revealed normal stability, flexion is limited by pain tolerance. Specifically nontender over the patella and the patellar tendon, infrapatellar tendon. There is some posterior knee tenderness), Abnormal active ROM of (left knee AROM incomplete flexion and unable to extend fully secondary to pain) Vitals VITALS Vital Signs Date Time Temp Pulse Resp B/P (MAP) Pulse Ox O2 Delivery O2 Flow Rate FiO2 11/28/19 16:13 Room Air 11/28/19 15:00 98.4 70 18 93/51 (65) 96 98.4 Labs Labs Laboratory Tests Test 11/28/19 10:31 11/28/19 11:22 Erythrocyte Sedimentation Rate 5 (0-25) Prothrombin Time 12.8 SEC (11.7-14.0) Prothromb Time International Ratio 1.0 (0.8-1.1) Sodium Level 142 mmol/L (136-145) Potassium Level 4.3 mmol/L (3.5-5.1) Chloride Level 105 mmol/L (98-107) Carbon Dioxide Level 26 mmol/L (21-32) Anion Gap 11 (6-14) Blood Urea Nitrogen 15 mg/dL (7-20) Creatinine 0.9 mg/dL (0.6-1.0) Estimated GFR (Cockcroft-Gault) 62.1 BUN/Creatinine Ratio 17 (6-20) Glucose Level 132 mg/dL (70-99) Calcium Level 9.1 mg/dL (8.5-10.1) Total Bilirubin 0.7 mg/dL (0.2-1.0) Aspartate Amino Transf (AST/SGOT) 14 U/L (15-37) Alanine Aminotransferase (ALT/SGPT) 20 U/L (14-59) Alkaline Phosphatase 74 U/L (46-116) C-Reactive Protein, Quantitative 2.4 mg/L (0-3.3) Total Protein 6.7 g/dL (6.4-8.2) Albumin 3.7 g/dL (3.4-5.0) Albumin/Globulin Ratio 1.2 (1.0-1.7) 25-Hydroxy Vitamin D Total 51.7 ng/mL (30-100) Laboratory Tests Test 11/28/19 10:31 11/28/19 11:22 Erythrocyte Sedimentation Rate 5 (0-25) Prothrombin Time 12.8 SEC (11.7-14.0) Prothromb Time International Ratio 1.0 (0.8-1.1) Sodium Level 142 mmol/L (136-145) Potassium Level 4.3 mmol/L (3.5-5.1) Chloride Level 105 mmol/L (98-107) Carbon Dioxide Level 26 mmol/L (21-32) Anion Gap 11 (6-14) Blood Urea Nitrogen 15 mg/dL (7-20) Creatinine 0.9 mg/dL (0.6-1.0) Estimated GFR (Cockcroft-Gault) 62.1 BUN/Creatinine Ratio 17 (6-20) Glucose Level 132 mg/dL (70-99) Calcium Level 9.1 mg/dL (8.5-10.1) Total Bilirubin 0.7 mg/dL (0.2-1.0) Aspartate Amino Transf (AST/SGOT) 14 U/L (15-37) Alanine Aminotransferase (ALT/SGPT) 20 U/L (14-59) Alkaline Phosphatase 74 U/L (46-116) C-Reactive Protein, Quantitative 2.4 mg/L (0-3.3) Total Protein 6.7 g/dL (6.4-8.2) Albumin 3.7 g/dL (3.4-5.0) Albumin/Globulin Ratio 1.2 (1.0-1.7) 25-Hydroxy Vitamin D Total 51.7 ng/mL (30-100) Images Images [facility] [address] [place] [address] IMAGING REPORT Signed PATIENT: HUI LEVY ACCOUNT: [id number] : 1950 LOCATION: ER AGE: 69 SEX: F EXAM STATUS: REG ER ORD. PHYSICIAN: JERRI MALONEY APRN REASON: swelling PROCEDURE: KNEE LEFT 3V EXAM: AP, oblique and lateral views of the left knee DATE: 11/27/2019 8:24 PM INDICATION: Left knee pain COMPARISON: 06/06/2019 FINDINGS: Changes of left total knee arthroplasty are in stable alignment without definite hardware complication. Moderate left knee joint effusion. No acute fracture or dislocation. IMPRESSION: 1. Changes of left total knee arthroplasty without definite hardware complication or fracture. 2. Moderate left knee joint effusion. Electronically signed by: César Webber MD (11/27/2019 10:37 PM) [id number] DICTATED and SIGNED BY: CÉSAR WEBBER MD DATE: 11/27/19 2237 [facility] [address] [place] [address] IMAGING REPORT Signed PATIENT: HUI LEVY ACCOUNT: [id number] : 1950 LOCATION: [address] [place] [address] AGE: 69 SEX: F EXAM STATUS: ADM IN ORD. PHYSICIAN: KELBY OLIVA MD REASON: left knee effusion, SWELLING PROCEDURE: EXT NON VASC LEFT Soft tissue ultrasound of the left extremity without comparison for status post left knee surgery, left knee swelling. TECHNIQUE AND FINDINGS: Real-time grayscale and color Doppler evaluation of the left knee is performed. There is complex fluid collection within the deep soft tissues adjacent to the bone, involving the medial, superior, and lateral aspects of the knee. This may be intra-articular. On the medial aspect of the knee there is an anechoic simple component. IMPRESSION: 1. Complex deep fluid collection, possibly a complex suprapatellar effusion. Electronically signed by: Skyler Driscoll MD (11/28/2019 1:40 PM) [id number] DICTATED and SIGNED BY: SKYLER DRISCOLL MD DATE: 11/28/19 1340 Assessment/Plan Assessment/Plan LEFT knee effusion with presence of left knee total arthroplasty Lab values and imaging themselves not suggestive of infectious process. Pain medications adjusted Ice the knee 20 minutes on 20 minutes off using a barrier to help control swelling when necessary. Pending lab work to be reviewed in the a.m. and consideration for local aspiration versus surgical management. SUNNY ELLIS Jr. PAC Nov 28, 2019 17:13
[2019-11-28 19:00] VITALS: BP 100/49
[2019-11-28 23:00] VITALS: BP 108/53
[2019-11-29 03:00] VITALS: BP 91/48
[2019-11-29 03:43] LABS: BASO # 0.1 x10^3/uL (0.0-0.2); BASO % 1 % (0-3); EOS # 0.1 x10^3/uL (0.0-0.7); EOS % 1 % (0-3); HEMATOCRIT 38.6 % (36.0-47.0); HEMOGLOBIN 13.2 g/dL (12.0-15.5); LYMPH # 2.4 x10^3/uL (1.0-4.8); LYMPH % 30 % (24-48); MEAN CORPUSCULAR HEMOGLOBIN 30 pg (25-35); MEAN CORPUSCULAR HGB CONC 34 g/dL (31-37); MEAN CORPUSCULAR VOLUME 87 fL (79-100); MONO # 0.6 x10^3/uL (0.0-1.1); MONO % 7 % (0-9); NEUT # 4.8 x10^3/uL (1.8-7.7); NEUT % 62 % (31-73); PLATELET COUNT 181 x10^3/uL (140-400); RED BLOOD COUNT 4.43 x10^6/uL (3.50-5.40); RED CELL DISTRIBUTION WIDTH 13.9 % (11.5-14.5); WHITE BLOOD COUNT 7.9 x10^3/uL (4.0-11.0)
[2019-11-29 07:00] VITALS: BP 99/42
--- NOTE | 2019-11-29 07:24 | PDOC ---
Provider Note Provider Note vss, no temp, bp low- L knee warn supralateral and some fluid, suspect hematoma- labs, esr all ok, doubt infection, gout- will hold lisin re bp- ortho to consider fluid aspiration for culture, cells- no nw meds yet- home if fluid looks aseptic JOVANI MATTHEW MD Nov 29, 2019 07:24
[2019-11-29] MEDS: CITALOPRAM 20 MG TABLET. PO SCH (08:48)
[2019-11-29] MEDS: buPROPion XL 150 MG TAB.ER.24H. PO SCH (08:48)
[2019-11-29] MEDS: PANTOPRAZOLE 40 MG TABLET.DR. PO SCH (08:48)
[2019-11-29] MEDS: ATORVASTATIN CALCIUM 20 MG TABLET PO SCH (08:48)
[2019-11-29 11:00] VITALS: BP 103/57
--- NOTE | 2019-11-29 11:02 | NUR ---
SW following. Discussed with RN, pt is SBA now, doing much better, left knee injected yesterday. RN does not anticipate pt will have any SW needs at discharge. SW will continue to follow.
[2019-11-29 15:00] VITALS: BP 120/70
--- NOTE | 2019-11-29 18:41 | NUR ---
Discharge Note: Patient was discharged home with self care. Spoke to Dr. Oliva's nurse about rounding on patient. Nurse called back stating Dr. Oliva was not rounding today and he was not planning on any procedure on patient. Patient was okay to discharge and to follow-up if symptoms worsen, okay to bear-weight as tolerated.. Dr. Patricio was called and made aware and this RN received orders to discharge patient on same medications and to follow-up as needed with him. Patient IV was discontinued without any complications per RN. Patient received discharge summary/instructions, follow-ups, and educational material. Patient did not have any further questions or concerns. Patient was taken down to the main entrance via wheelchair, accompanied by MAC Zamudio, with all personal belongings where her daughter was waiting for her to take her home.
--- NOTE | 2019-11-29 23:57 | DS ---
DATE OF DISCHARGE: 11/29/2019 HOSPITAL SUMMARY: The patient came in with left knee pain and some swelling with no injury. X-ray showed no lesions and CBC, sed rate, and laboratory studies were unremarkable. Ortho saw her and felt that the small effusion on the left superior lateral knee was not worth intervening or tapping as it was minimal redness and no sign of infection. She was treated with pain medications and Dr. Oliva will follow her as an outpatient at this point. FINAL DIAGNOSES: Knee pain, etiology undetermined. OPERATIONS, PROCEDURES, AND COMPLICATIONS: None. CONSULTATION: Dr. Oliva. DISPOSITION: Hydrocodone given for 5 days for her. Home meds remain the same. Follow with Dr. Oliva in 1 week. PROGNOSIS: Good. JOVANI MATTHEW MD DR: LILY/nts JOB#: [id number] / [id number]
== END 2019-11-29 18:30 | disposition home or self-care (01) | DRG 566 ==
LOC: ER 18:58 → 5 SOUTH 21:40 → OBSVTOIN 22:02
PROVIDERS: ADMIT Family Medicine; ATTEND Family Medicine
DX: M25.462 Effusion, left knee (principal); M25.562 Pain in left knee; I10 Essential (primary) hypertension; E78.5 Hyperlipidemia, unspecified; G89.29 Other chronic pain; Z96.652 Presence of left artificial knee joint; F32.9 Major depressive disorder, single episode, unspecified; F41.9 Anxiety disorder, unspecified; K21.9 Gastro-esophageal reflux disease without esophagitis; M13.862 Other specified arthritis, left knee; M13.861 Other specified arthritis, right knee; Z80.9 Family history of malignant neoplasm, unspecified; Z87.891 Personal history of nicotine dependence; Z90.710 Acquired absence of both cervix and uterus; Z90.49 Acquired absence of other specified parts of digestive tract; Z82.49 Family history of ischemic heart disease and other diseases of the circulatory system
CPT/HCPCS: 36415; 73562; 76881; 80053; 82306; 85025; 85610; 85651; 86140; 87641; G0379; J0780; J2270; J2405; J2930; G0378

== ENCOUNTER → 2020-02-17 | Outpatient (CLI) | payer MEDICARE ==
[~2020-02-17] MED LIST changes: +LISI10TA2 PO; +TEMA15CA PO
--- NOTE | 2020-02-17 14:09 | RAD ---
MR of the left knee HISTORY: Left knee pain. Knee replacement 2 years ago. TECHNIQUE: Routine multiplanar sequences are obtained. FINDINGS: Extensive metal artifact about the knee due to knee replacement with corresponding image degradation. The patellar tendon and quadriceps tendon are intact. Small joint effusion. No significant Domingo's cyst. No abnormal soft tissue fluid collection. No abnormal muscle or subcutaneous edema. The visualized bones are intact without marrow edema, acute fracture or aggressive bone destruction. IMPRESSION: 1. Small suprapatellar joint effusion. 2. No other definite acute abnormality within constraints of a knee arthroplasty. Electronically signed by: Chace Marrufo MD (02/17/2020 2:06 PM) [id number]
== END | disposition home or self-care (01) ==
LOC: MRI 12:27
PROVIDERS: ATTEND Orthopaedic Surgery
DX: M25.462 Effusion, left knee (principal); Z96.652 Presence of left artificial knee joint; Z98.890 Other specified postprocedural states
CPT/HCPCS: 73721

== ENCOUNTER → 2020-03-26 | Outpatient (CLI) | payer MEDICARE ==
[~2020-03-26] MED LIST changes: +CHOL10003 PO
== END | disposition home or self-care (01) ==
LOC: LAB 12:43
PROVIDERS: ATTEND Orthopaedic Surgery
DX: Z11.59 Encounter for screening for other viral diseases (principal)
CPT/HCPCS: U0003-CS

== ENCOUNTER 2020-03-31 10:23 | Inpatient (IN) | payer MEDICARE ==
[2020-03-31] VITALS (8 sets, daily range): BP systolic 109–138; BP diastolic 67–78
[~2020-03-31] VITALS: Ht 160 cm; Wt 78.9 kg
--- NOTE | 2020-03-31 10:16 | PDOC1 ---
History and Physical Date of Admission Date of Admission DATE: 03/31/20 TIME: 10:14 Identification/Chief Complaint Chief Complaint left knee pain Source Source: Chart review, Patient History of Present Illness History of Present Illness Aisha is here with left knee pain and recurrent swelling. Primary left total knee arthroplasty in July 2018. She had irrigation of hematoma and quadriceps tendon repair on 05/21/19. She reports that her lateral knee continues to be swollen and painful. Synovasure results on 01/23/20 showed negative alpha defensins, CRP 0.5, total nucleated cell count 2017, neutrophils 28.9, and cultures showed no growth. Currently, she states that her knee continues to be painful and "puffy". Patient says "something has to be done." She has a palpable area of deep quad tendon abnormality, and recurrent swelling and effusion. Past Medical History Cardiovascular: HTN, Hyperlipidemia GI: GERD Psych: Anxiety, Depression Past Surgical History Past Surgical History: Cholecystectomy, Total knee replacement, Hysterectomy Family History Family History: Cancer, Heart Disease Social History ALCOHOL: none Drugs: None Current Medications Current Medications Current Medications Ondansetron HCl (Zofran) 4 mg PRN Q6HRS PRN IV NAUSEA/VOMITING; Start 03/31/20 at 07:00; Stop 04/01/20 at 06:59 Fentanyl Citrate (Fentanyl 2ml Vial) 25 mcg PRN Q5MIN PRN IV MILD PAIN 1-3; Start 03/31/20 at 07:00; Stop 04/01/20 at 06:59 Fentanyl Citrate (Fentanyl 2ml Vial) 50 mcg PRN Q5MIN PRN IV MODERATE TO SEVERE PAIN; Start 03/31/20 at 07:00; Stop 04/01/20 at 06:59 Morphine Sulfate (Morphine Sulfate) 1 mg PRN Q10MIN PRN IV SEVERE PAIN 7-10; Start 03/31/20 at 07:00; Stop 04/01/20 at 06:59 Ringer's Solution 1,000 ml @ 30 mls/hr Q24H IV ; Start 03/31/20 at 07:00; Stop 03/31/20 at 18:59 Lidocaine HCl (Xylocaine-Mpf 1% 2ml Vial) 2 ml PRN 1X PRN ID PRIOR TO IV START; Start 03/31/20 at 07:00; Stop 04/01/20 at 06:59 Hydromorphone HCl (Dilaudid) 0.5 mg PRN Q10MIN PRN IV SEV PAIN, Second choice; Start 03/31/20 at 07:00; Stop 04/01/20 at 06:59 Prochlorperazine Edisylate (Compazine) 5 mg PACU PRN PRN IV NAUSEA, MRX1; Start 03/31/20 at 07:00; Stop 04/01/20 at 06:59 Cefazolin Sodium/ Dextrose 50 ml @ 100 mls/hr 1X ONCE IV ; Start 03/31/20 at 06:00; Stop 03/31/20 at 06:29; Status DC Active Scripts Active Reported Percocet 5-325 Mg Tablet (Oxycodone/Acetaminophen) 1 Each Tablet 1 Tab PO QIDPRN PRN MDD 4 Tablet(s) 30 Days Vitamin D3 (Cholecalciferol (Vitamin D3)) 25 Mcg Tablet 25 Mcg PO DAILY Temazepam 15 Mg Capsule 15 Mg PO HS PRN MDD 30 mg Wellbutrin Xl (Bupropion Hcl) 300 Mg Tab.er.24h 300 Mg PO DAILY Protonix (Pantoprazole Sodium) 20 Mg Tablet.dr 20 Mg PO DAILY Atorvastatin Calcium 20 Mg Tablet 20 Mg PO DAILY Escitalopram Oxalate 20 Mg Tablet 20 Mg PO DAILY Lorazepam 0.5 Mg Tablet 1 Mg PO TID Allergies Allergies: Coded Allergies: No Known Drug Allergies (Unverified , 03/31/20) [facility] [address] [place] [address] IMAGING REPORT Signed PATIENT: AISHA LEVY ACCOUNT: [id number] : 1950 LOCATION: [address] [place] [address] AGE: 69 SEX: F EXAM STATUS: ADM IN ORD. PHYSICIAN: KELBY CAO MD REASON: left knee effusion, SWELLING PROCEDURE: EXT NON VASC LEFT Soft tissue ultrasound of the left extremity without comparison for status post left knee surgery, left knee swelling. TECHNIQUE AND FINDINGS: Real-time grayscale and color Doppler evaluation of the left knee is performed. There is complex fluid collection within the deep soft tissues adjacent to the bone, involving the medial, superior, and lateral aspects of the knee. This may be intra-articular. On the medial aspect of the knee there is an anechoic simple component. IMPRESSION: 1. Complex deep fluid collection, possibly a complex suprapatellar effusion. Electronically signed by: Skyler Driscoll MD (11/28/2019 1:40 PM) [id number] DICTATED and SIGNED BY: SKYLER DRISCOLL MD DATE: 11/28/19 13[address] [facility] [address] [place] [address] IMAGING REPORT Signed PATIENT: AISHA LEVY ACCOUNT: [id number] : 1950 LOCATION: MRI AGE: 69 SEX: F EXAM STATUS: REG CLI ORD. PHYSICIAN: KELBY CAO MD REASON: LEFT LATERAL KNEE PAIN POST KNEE REPLACEMENT 2 YEARS AGO PROCEDURE: LOWER EXT JOINT WO LT MR of the left knee HISTORY: Left knee pain. Knee replacement 2 years ago. TECHNIQUE: Routine multiplanar sequences are obtained. FINDINGS: Extensive metal artifact about the knee due to knee replacement with corresponding image degradation. The patellar tendon and quadriceps tendon are intact. Small joint effusion. No significant Domingo's cyst. No abnormal soft tissue fluid collection. No abnormal muscle or subcutaneous edema. The visualized bones are intact without marrow edema, acute fracture or aggressive bone destruction. IMPRESSION: 1. Small suprapatellar joint effusion. 2. No other definite acute abnormality within constraints of a knee arthroplasty. Electronically signed by: Chace Marrufo MD (02/17/2020 2:06 PM) [id number] DICTATED and SIGNED BY: CHACE MARRUFO MD DATE: 02/17/20 1406 [facility] [address] [place] [address] IMAGING REPORT Signed PATIENT: AISHA LEVY ACCOUNT: [id number] : 1950 LOCATION: ER AGE: 69 SEX: F EXAM STATUS: REG ER ORD. PHYSICIAN: JERRI MALONEY APRN REASON: swelling PROCEDURE: KNEE LEFT 3V EXAM: AP, oblique and lateral views of the left knee DATE: 11/27/2019 8:24 PM INDICATION: Left knee pain COMPARISON: 06/06/2019 FINDINGS: Changes of left total knee arthroplasty are in stable alignment without definite hardware complication. Moderate left knee joint effusion. No acute fracture or dislocation. IMPRESSION: 1. Changes of left total knee arthroplasty without definite hardware complication or fracture. 2. Moderate left knee joint effusion. Electronically signed by: César Webber MD (11/27/2019 10:37 PM) [id number] DICTATED and SIGNED BY: CÉSAR WEBBER MD DATE: 11/27/19 2237 VTE Prophylaxis Ordered VTE Prophylaxis Devices: No VTE Pharmacological Prophylaxi: Yes Justicifation of Admission Dx: Justifications for Admission: Justification of Admission Dx: N/A KELBY CAO MD Mar 31, 2020 10:16
[~2020-03-31 10:23] MED LIST changes: +HYDROmorphone 2 MG/ML VIAL IV PRN; +IV RINGERS,LACTATED 1000ML 1,000 ML IV SCH; +LIDOCAINE 1% PF 2 ML VIAL. ID PRN; +MORPHINE SULFATE 2 MG/ML VIAL. IV PRN; +ONDANSETRON PF 4 MG/2 ML VIAL. IV PRN; +PROCHLORPERAZINE 10 MG/2 ML VIAL. IV PRN; +fentaNYL PF VIAL 100 MCG/2 ML VIAL IV PRN
[2020-03-31 11:11] LABS: BASO % 1 % (0-3); EOS # 0.2 x10^3/uL (0.0-0.7); EOS % 3 % (0-3); HEMATOCRIT 43.9 % (36.0-47.0); LYMPH # 1.5 x10^3/uL (1.0-4.8); LYMPH % 30 % (24-48); MEAN CORPUSCULAR HEMOGLOBIN 29 pg (25-35); MEAN CORPUSCULAR HGB CONC 34 g/dL (31-37); MEAN CORPUSCULAR VOLUME 85 fL (79-100); MONO # 0.5 x10^3/uL (0.0-1.1); MONO % 10 % (0-9); NEUT # 2.7 x10^3/uL (1.8-7.7); NEUT % 56 % (31-73); PLATELET COUNT 207 x10^3/uL (140-400); RED BLOOD COUNT 5.14 x10^6/uL (3.50-5.40); RED CELL DISTRIBUTION WIDTH 13.8 % (11.5-14.5); WHITE BLOOD COUNT 4.9 x10^3/uL (4.0-11.0)
[2020-03-31 11:18] LABS: CALCIUM 8.9 mg/dL (8.5-10.1); POTASSIUM 4.2 mmol/L (3.5-5.1)
[2020-03-31 11:20] LABS: PROTHROMBIN TIME PATIENT 13.2 SEC (11.7-14.0)
[2020-03-31 11:24] LABS: C-REACTIVE PROTEIN 2.5 mg/L (0-3.3)
[2020-03-31] MEDS ORDERED: BUPIVACAINE-EPI 0.25%-1:200000 MPF 30 ML VIAL. ONE (11:44)
[2020-03-31] MEDS ORDERED: PROPOFOL 10 MG/ML (20ML) VIAL. IV ONE (11:57)
[2020-03-31] MEDS ORDERED: PHENYLEPHRINE in 0.9% NACL PF 1 MG/10 ML SYRINGE. IV ONE (11:57)
[2020-03-31] MEDS ORDERED: LIDOCAINE 2% PF 5 ML VIAL. ONE (11:58)
[2020-03-31] MEDS ORDERED: MIDAZOLAM HCL/PF 2 MG/2 ML VIAL. ONE (12:00)
[2020-03-31] MEDS ORDERED: ePHEDrine PF IN SALINE 50 MG/10 ML SYRINGE. IV ONE (12:14)
[2020-03-31] MEDS ORDERED: DEXAMETHASONE SOD PHOS 4 MG/ML VIAL ONE (12:39)
[2020-03-31] MEDS ORDERED: ONDANSETRON PF 4 MG/2 ML VIAL. ONE (12:40)
[2020-03-31] MEDS ORDERED: PROPOFOL 50 ML IV ONE (12:41)
[2020-03-31] MEDS ORDERED: BUPIVACAINE-EPI 0.25%-1:200000 MPF 30 ML VIAL. INJ ONE (12:50)
--- NOTE | 2020-03-31 13:29 | PDOC4 ---
Operative Note Operative Note Date of Procedure: March 31, 2020 Pre-Op Diagnosis: Spontaneous rupture of extensor tendons, left thigh M66.252 Post-Op Diagnosis: same Procedure: left knee suture of quadriceps tendon, secondary reconstruction, including allograft, CPT 09354 Surgeon: Kelby Oliva MD Anesthesia: spinal EBL: 25 mL Specimens Obtained: none Complications: none Drains: none Tourniquet time: 15 minutes Tourniquet pressure: 350 mm Hg Findings: Central distal quadriceps tendon rupture and defect with palpable thin membranous scar intervening. Indications for Procedure: The patient is a 69 year old with history of left knee arthroplasty 2 years ago. Last year she had an injury and developed a hemarthrosis, and partial distal quadriceps tendon rupture, and this was repaired with sutures. She has since developed a palpable defect in the central portion of the distal quadriceps tendon which is bothersome and seems to cause recurrent hemarthrosis. I tried nonoperative treatment without success. I recommended secondary reconstruction of the tendon with allograft. The patient and I discussed the potential risks of surgery such as repeat tear, stiffness, bleeding, infection, scarring, blood clots, or other potential surgical or anesthetic complications. All of the patients questions about surgery were answered and they desired to proceed. Procedure in Detail: The patient was identified in the preoperative holding area. The correct left lower extremity was marked by me. The patient was taken to the operating room where there patient was anesthetized by the department of anesthesia using spinal anesthesia. The patient was positioned supine on the operating table. A tourniquet was placed on the upper left thigh. Preoperative antibiotics were given intravenously. A timeout procedure was performed The limb was prepared in sterile fashion with ChloraPrep surgical prep solution. Sterile drapes were applied. An impervious stockinette and Coban were used over the lower limb. An Esmarch bandage was used to exsanguinate the limb. The tourniquet was inflat ed. A midline skin incision was used using the upper portion of her prior total knee incision. Sharp dissection was used and Bovie electrocautery was used as needed for hemostasis. There was a central defect in the tendon with a very thin abnormal area of tissue starting at the distal rectus femoris, then about 2 to 3 cm gap of abnormal thin membranous scar tissue, and then normal tendon at the superior patella. There was remaining #5 FiberWire suture from the previous side to side repair and I removed that suture. In order to excise the abnormal tissue, I performed a horizontal elliptical excision 6 cm in width and 3 cm from superior to inferior, completely excising the area of thin abnormal membranous scar. This left me with healthy tendon proximally and distally for secure tendon to tendon repair. I used #5 FiberWire suture in a modified Cameron pattern, and closed the ellipse from superior to inferior, bringing the healthy rectus femoris central quadriceps tendon to the superior pole of the patella t uft of tendon. I then used a #0 PDS suture in a running fashion to oversew the edges. A secure repair was obtained. I then augmented the repair with allograft, using Arthrex Amnion matrix allograft. The graft was moistened with saline, and implanted, completely covering the suture repair to prevent adhesions and to strengthen the repair. The graft was oriented correctly with the epidermal side facing out, and secured with 2-0 Vicryl interrupted sutures on all 4 corners, and secured with #2-0 Vicryl on the midportion of the long edges. Copious saline irrigation was used a final time. The tourniquet was released. Bovie electrocautery was used for hemostasis. 0.25% Marcaine with epinephrine was injected for hemostasis and pain relief. The subcutaneous tissue was closed with 2-0 Vicryl. The skin was approximated with #3-0 Stratafix Monocryl suture, Mastisol and Steri-Strips. Needle and sponge counts were correct. There were no apparent complications. A sterile dressing and a knee immobilizer were placed. KELBY OLIVA MD Mar 31, 2020 13:29
[2020-03-31] MEDS ORDERED: ONDANSETRON PF 4 MG/2 ML VIAL. IVP PRN (13:30)
[2020-03-31] MEDS ORDERED: DEXTROSE 50% 25 GM / 50ML DISP.SYRIN. IV PRN (13:30)
[2020-03-31] MEDS ORDERED: POLYETHYLENE GLYCOL 3350 17 GM PACKET. PO PRN (13:30)
[2020-03-31] MEDS ORDERED: fentaNYL PF VIAL 100 MCG/2 ML VIAL IVP PRN (13:30)
[2020-03-31] MEDS ORDERED: MORPHINE SULFATE 4 MG/ML VIAL. IVP PRN (13:30)
[2020-03-31] MEDS ORDERED: MORPHINE SULFATE 2 MG/ML VIAL. IVP PRN (13:30)
--- NOTE | 2020-03-31 14:00 | NUR ---
receive from recovery. Aisha denies numbness; appears to have no difference in sensation, bilateral motion in ankles if good. good pedal pulses.she received a spinal block for surgery.immobilizer remains in place. complains of pain; medicated with percocet. she refused morphine because it causes hallucinations. fentanyl doesn't work. daughter at bedside.
[2020-03-31] MEDS: IV 1/2 NORMAL SALINE 1,000 ML IV SCH (14:29)
[2020-03-31] MEDS: SENNOSIDES/DOCUSATE 8.6/50MG TABLET. PO SCH (14:33)
[2020-03-31] MEDS: LORazepam 0.5 MG TABLET PO SCH ×2 (14:33→20:15)
[2020-03-31] MEDS: oxyCODONE/APAP 5/325 1 TAB TABLET PO PRN ×3 (14:33→23:07)
[2020-03-31] MEDS: CHOLECALCIFEROL (VITAMIN D3) 1,000 UNIT TABLET PO SCH (14:33)
[2020-03-31] MEDS: buPROPion XL 150 MG TAB.ER.24H. PO SCH (14:37)
[2020-03-31] MEDS: PANTOPRAZOLE 40 MG TABLET.DR. PO SCH (14:38)
[2020-03-31] MEDS: oxyCODONE IR 5 MG TABLET PO PRN ×2 (16:18→20:21)
[2020-03-31] MEDS ORDERED: ATORVASTATIN CALCIUM 20 MG TABLET PO SCH (21:00)
[2020-03-31] MEDS ORDERED: APIXABAN 2.5 MG TABLET. PO SCH (21:00)
[2020-03-31] MEDS ORDERED: TEMAZEPAM 15 MG CAPSULE PO PRN (23:45)
[2020-04-01] MEDS: oxyCODONE IR 5 MG TABLET PO PRN ×2 (00:16→10:14)
[2020-04-01] MEDS: IV 1/2 NORMAL SALINE 1,000 ML IV SCH (02:49)
[2020-04-01 03:00] VITALS: BP 113/65
[2020-04-01] MEDS ORDERED: MAGNESIUM HYDROXIDE 2,400 MG/30 ML ORAL.SUSP. PO PRN (06:00)
[2020-04-01] MEDS: PANTOPRAZOLE 40 MG TABLET.DR. PO SCH (06:36)
[2020-04-01 06:37] VITALS: BP 99/60
[2020-04-01] MEDS: oxyCODONE/APAP 5/325 1 TAB TABLET PO PRN ×2 (06:41→16:06)
--- NOTE | 2020-04-01 07:55 | NUR ---
Awaken with sever pain on left knee. Fentanyl and Percocet given. Cont. monitor.
[2020-04-01] MEDS ORDERED: ASPIRIN 325 MG TABLET PO SCH (08:00)
[2020-04-01] MEDS: SENNOSIDES/DOCUSATE 8.6/50MG TABLET. PO SCH (08:34)
[2020-04-01] MEDS: buPROPion XL 150 MG TAB.ER.24H. PO SCH (08:34)
[2020-04-01] MEDS: CHOLECALCIFEROL (VITAMIN D3) 1,000 UNIT TABLET PO SCH (08:34)
[2020-04-01] MEDS: LORazepam 0.5 MG TABLET PO SCH ×2 (08:39→14:16)
[2020-04-01] MEDS ORDERED: CITALOPRAM 20 MG TABLET. PO SCH (09:00)
[2020-04-01] MEDS ORDERED: MULTIVITAMIN with MINERAL TABLET. PO SCH (09:00)
--- NOTE | 2020-04-01 09:00 | NUR ---
Ambulated down hallway with therapy and was able to tolerated. Did fairly well. Cont. monitor.
[2020-04-01] MEDS ORDERED: BISACODYL 10 MG SUPP.RECT. PR PRN (16:00)
--- NOTE | 2020-04-01 16:09 | PDOC ---
PROGRESS NOTES Subjective Subjective No complaints. Discussed the surgical findings. Objective Vital Signs Vital Signs Date Time Temp Pulse Resp B/P (MAP) Pulse Ox O2 Delivery O2 Flow Rate FiO2 04/01/20 16:06 Room Air 04/01/20 06:41 20 94 04/01/20 06:37 98.2 75 99/60 (73) 2.0 98.2 Physical Exam Dressing dry. Knee immobilizer is in place. Calf soft and nontender. Good dorsiflexion and plantarflexion of the toes and good sensation and capillary refill. Labs Laboratory Tests Test 03/31/20 10:50 White Blood Count 4.9 x10^3/uL (4.0-11.0) Red Blood Count 5.14 x10^6/uL (3.50-5.40) Hemoglobin 15.0 g/dL (12.0-15.5) Hematocrit 43.9 % (36.0-47.0) Mean Corpuscular Volume 85 fL (79-100) Mean Corpuscular Hemoglobin 29 pg (25-35) Mean Corpuscular Hemoglobin Concent 34 g/dL (31-37) Red Cell Distribution Width 13.8 % (11.5-14.5) Platelet Count 207 x10^3/uL (140-400) Neutrophils (%) (Auto) 56 % (31-73) Lymphocytes (%) (Auto) 30 % (24-48) Monocytes (%) (Auto) 10 % (0-9) Eosinophils (%) (Auto) 3 % (0-3) Basophils (%) (Auto) 1 % (0-3) Neutrophils # (Auto) 2.7 x10^3/uL (1.8-7.7) Lymphocytes # (Auto) 1.5 x10^3/uL (1.0-4.8) Monocytes # (Auto) 0.5 x10^3/uL (0.0-1.1) Eosinophils # (Auto) 0.2 x10^3/uL (0.0-0.7) Basophils # (Auto) 0.0 x10^3/uL (0.0-0.2) Prothrombin Time 13.2 SEC (11.7-14.0) Prothromb Time International Ratio 1.0 (0.8-1.1) Activated Partial Thromboplast Time 32 SEC (24-38) Sodium Level 140 mmol/L (136-145) Potassium Level 4.2 mmol/L (3.5-5.1) Chloride Level 104 mmol/L (98-107) Carbon Dioxide Level 27 mmol/L (21-32) Anion Gap 9 (6-14) Blood Urea Nitrogen 19 mg/dL (7-20) Creatinine 1.0 mg/dL (0.6-1.0) Estimated GFR (Cockcroft-Gault) 55.0 Glucose Level 95 mg/dL (70-99) Calcium Level 8.9 mg/dL (8.5-10.1) C-Reactive Protein, Quantitative 2.5 mg/L (0-3.3) Assessment Assessment POD# 1 after quad tendon reconstruction with allograft Plan Plan of Care Discharge to home. Knee immobilizer. Keep the knee straight. Percocet for pain. Aspirin twice a day for DVT prophylaxis. Office follow-up. Do not bend the knee at this time. She may begin some gentle active range of motion exercises in 2 weeks but should only do that when she is in the seated position. Use the knee immobilizer and the knee fully extended for gait for 6 weeks. Justicifation of Admission Dx: Justifications for Admission: Justification of Admission Dx: N/A KELBY CAO MD Apr 01, 2020 16:09
[2020-04-01] MEDS ORDERED: ASPI325T11 PO (16:20)
--- NOTE | 2020-04-01 16:55 | NUR ---
Discharge instructions given. Answered questions and concerns. Verbalized understanding. Pt discharged home accompanied by sister.
== END 2020-04-01 16:55 | disposition home or self-care (01) | DRG 502 ==
LOC: SURG 10:23 → 4 SOUTHEST 13:30 → OBSVTOIN 15:25
PROVIDERS: ADMIT Orthopaedic Surgery; ATTEND Orthopaedic Surgery
PROC: 0LQM0ZZ Repair Left Upper Leg Tendon, Open Approach (ICD-10-PCS; 2020-03-31)
PROC: 0LUR0KZ Supplement Left Knee Tendon with Nonautologous Tissue Substitute, Open Approach (ICD-10-PCS; principal; 2020-03-31 12:00)
DX: M66.252 Spontaneous rupture of extensor tendons, left thigh (principal); E78.5 Hyperlipidemia, unspecified; I10 Essential (primary) hypertension; S76.119A Strain of unspecified quadriceps muscle, fascia and tendon, initial encounter; Z90.710 Acquired absence of both cervix and uterus; Z96.652 Presence of left artificial knee joint; F32.9 Major depressive disorder, single episode, unspecified; F41.9 Anxiety disorder, unspecified; K21.9 Gastro-esophageal reflux disease without esophagitis; Z79.899 Other long term (current) drug therapy; Z90.49 Acquired absence of other specified parts of digestive tract
CPT/HCPCS: 36415; 80048; 85025; 85610; 85730; 86140; G0378; G0379; J0690; J1100; J2250; J2370; J2405; J2704; J3010; J3490; 97116-GP; 97535-GO

== ENCOUNTER → 2020-07-03 | Outpatient (CLI) | payer MEDICARE ==
[~2020-07-03] MED LIST changes: -HYDROmorphone 2 MG/ML VIAL IV PRN; -IV RINGERS,LACTATED 1000ML 1,000 ML IV SCH; -LIDOCAINE 1% PF 2 ML VIAL. ID PRN; -MORPHINE SULFATE 2 MG/ML VIAL. IV PRN; -ONDANSETRON PF 4 MG/2 ML VIAL. IV PRN; -PROCHLORPERAZINE 10 MG/2 ML VIAL. IV PRN; -fentaNYL PF VIAL 100 MCG/2 ML VIAL IV PRN
--- NOTE | 2020-07-03 11:34 | RAD ---
MRI Lumbar Spine without contrast History: Low back pain Technique: Multiplanar, multi sequential noncontrast MR imaging was performed of the lumbar spine. Comparison: None Findings: Lumbar vertebral body stature is maintained. There is moderate levoscoliosis with a rotary component, centered near L2-3. There is mild left lateral subluxation L4 relative to L5 and L3 relative to L4. There is minimal right lateral subluxation L1 relative to L2 and L2 relative to L3. There is mild posterior subluxation of L2 relative to L3 and L1 relative to L2. There is multilevel moderate to severe degenerative disc disease greatest at L1-L2 and to lesser degree at other levels, greatest at sites of the anticipated increased axial weightbearing due to scoliosis. There is mild endplate edema greatest T12-L1 through L2-3 likely reactive/degenerative in etiology. T12-L1: Spinal canal and neural foramina are adequate. L1-L2: There is minimal disc osteophyte complex superimposed on the minimally posteriorly subluxed inferior L1 vertebral body margin. There is likely mild overall narrowing of the right neural foramen, left neural foramen not significantly narrowed. There is variable mild to moderate narrowing of the far lateral recesses bilaterally, central canal adequate. L2-L3: There is [id number], right greater than left facet degenerative change and mild buckling of the ligamentum flavum. There is minimal disc osteophyte complex superimposed on the minimally posteriorly subluxed inferior L2 vertebral body margin. There is mild narrowing of the far right lateral recess. There is moderate to severe narrowing of the right neural foramen in part from posteriorly by facet, left neural foramen adequate. L3-L4: There is mild buckling of the ligamentum flavum and [id number] facet hypertrophic change. There is mild narrowing of the far right lateral recess. There is mild right and very mild left neural foramina compromise. L4-L5: There is [id number]-[id number] facet hypertrophic change. There is mild buckling of the ligamentum flavum. There is negligible disc osteophyte complex. Spinal canal is overall adequate. There is moderate to severe narrowing of the left neural foramen primarily from posteriorly by facet. Right neural foramen is adequate although minimal disc osteophyte complex near undersurface exiting right L4 nerve root in the distal neural foramen and proximal extraforaminal region without significant displacement. L5-S1: Spinal canal and right neural foramen are adequate. There is mild to moderate left facet degenerative change. There is minimal disc osteophyte complex in the inferior left neural foramen. There is mild narrowing of the left neural foramen, contact of the undersurface exiting left L5 nerve root by disc osteophyte complex. Impression: 1. There is moderate lumbar levoscoliosis with a rotary component. There is abnormal alignment including abnormal lateral alignment as stated, also multilevel facet degenerative change. 2. There is aasd-on-avssrhvx narrowing narrowing of the far lateral recesses bilaterally at L1-2, minimal narrowing of the lateral recesses such as on the right at L2-3 and L3-4. 3. There is moderate to severe narrowing of the right L2-3 and left L4-5 neural foramina, other mild narrowing as described. 4. There is multilevel lumbar degenerative disc disease greatest at L1-2, to a lesser degree at other levels at anticipated sites of axial weightbearing due to scoliotic curvature. Electronically signed by: Alcon South MD (07/03/2020 11:31 AM) [facility]
== END ==
LOC: MRI 11:16
PROVIDERS: ATTEND Orthopaedic Surgery
DX: M47.817 Spondylosis without myelopathy or radiculopathy, lumbosacral region (principal); M48.07 Spinal stenosis, lumbosacral region; M41.86 Other forms of scoliosis, lumbar region; M25.78 Osteophyte, vertebrae
CPT/HCPCS: 72148

== ENCOUNTER 2020-08-07 21:19 | Emergency (ER) | payer MEDICARE ==
[~2020-08-07] VITALS: Ht 162.6 cm; Wt 80.1 kg
[~2020-08-07 21:19] MED LIST changes: -IOHEXOL 180 MG/ML 10 ML VIAL. ONE; -methylPREDNISolone ACETATE 40 MG/ML VIAL. ONE; -methylPREDNISolone ACETATE 80 MG/ML VIAL. ONE
[2020-08-08 01:00] VITALS: BP 110/66
--- NOTE | 2020-08-08 01:40 | PHYS DOC ---
Past Medical History Past Medical History: No Pertinent History, Anxiety Past Surgical History: Cholecystectomy, Hysterectomy, Knee Replacement, Other Additional Past Surgical Histo: Cataract surgery Smoking Status: Never Smoker Alcohol Use: None Drug Use: None General Adult EDM: Chief Complaint: KNEE SWELLING HPI: HPI: Patient is a 69 year old female presents with the chief complaint of left knee swelling and pain. Patient with past surgical history of knee replacement. Patient also with a past medical history of knee effusions. Swelling started this afternoon. Pain with ROM. Knee is not warm to the touch. Patient is not of blood thinning medications. She denies any truama. Exam consistent with effusion. This afternoon patient had spinal injection and she is concern injection is rel ated to left knee effusion. Review of Systems: Review of Systems: Constitutional: Denies fever or chills. [] Eyes: Denies change in visual acuity. [] HENT: Denies nasal congestion or sore throat. [] Respiratory: Denies cough or shortness of breath. [] Cardiovascular: Denies chest pain or edema. [] GI: Denies abdominal pain, nausea, vomiting, bloody stools or diarrhea. [] : Denies dysuria. [] Musculoskeletal: Denies back pain or joint pain. [] Integument: Denies rash. [] Neurologic: Denies headache, focal weakness or sensory changes. [] Endocrine: Denies polyuria or polydipsia. [] Lymphatic: Denies swollen glands. [] Psychiatric: Denies depression or anxiety. [] Heart Score: Risk Factors: Risk Factors: DM, Current or recent (<one month) smoker, HTN, HLP, family history of CAD, obesity. Risk Scores: Score 0 - 3: 2.5% MACE over next 6 weeks - Discharge Home Score 4 - 6: 20.3% MACE over next 6 weeks - Admit for Clinical Observation Score 7 - 10: 72.7% MACE over next 6 weeks - Early Invasive Strategies Allergies: Allergies: Allergies Coded Allergies Type Severity Reaction Last Updated Verified No Known Drug Allergies 03/31/20 No Physical Exam: PE: Constitutional: Well developed, well nourished, no acute distress, non-toxic appearance. [] HENT: Normocephalic, atraumatic, bilateral external ears normal, oropharynx moist, no oral exudates, nose normal. [] Eyes: PERRLA, EOMI, conjunctiva normal, no discharge. [] Neck: Normal range of motion, no tenderness, supple, no stridor. [] Cardiovascular:Heart rate regular rhythm, no murmur [] Lungs & Thorax: Bilateral breath sounds clear to auscultation [] Abdomen: Bowel sounds normal, soft, no tenderness, no masses, no pulsatile masses. [] Skin: Warm, dry, no erythema, no rash. [] Back: No tenderness, no CVA tenderness. [] Extremities: , no cyanosis, no clubbing, , no edema. [decreased rom left knee, left knee effusion.] Neurologic: Alert and oriented X 3, normal motor function, normal sensory function, no focal deficits noted. [] Psychologic: Affect normal, judgement normal, mood normal. [] Current Patient Data: Vital Signs: Vital Signs Date Time Temp Pulse Resp B/P (MAP) Pulse Ox O2 Delivery O2 Flow Rate FiO2 08/08/20 01:00 66 18 110/66 (81) 96 Room Air 08/07/20 21:50 98.0 98.0 EKG: EKG: [] Radiology/Procedures: Radiology/Procedures: [] Course & Med Decision Making: Course & Med Decision Making Pertinent Labs and Imaging studies reviewed. (See chart for details) []Do on suspect knee effusion is related to spinal injection. Offered patient aspiration of left knee effusion. Patient deferred. Patient to follow up with Ortho. Suggested knee brace. Clairon Disclaimer: Janet Disclaimer: This electronic medical record was generated, in whole or in part, using a voice recognition dictation system. Departure Departure Impression: Primary Impression: Knee effusion, left Disposition: 01 DC HOME SELF CARE/HOMELESS Condition: STABLE Referrals: JOVANI MATTHEW MD (PCP) Patient Instructions: Knee Effusion KIAH PRUITT I DO Aug 08, 2020 01:40
== END 2020-08-08 01:48 | disposition home or self-care (01) ==
LOC: ER 21:19
DX: M25.462 Effusion, left knee (principal); M25.562 Pain in left knee; Z96.659 Presence of unspecified artificial knee joint; Z90.49 Acquired absence of other specified parts of digestive tract; Z90.710 Acquired absence of both cervix and uterus
CPT/HCPCS: 99282; 99283

== ENCOUNTER → 2020-08-07 | Outpatient (CLI) | payer MEDICARE ==
[~2020-08-07] MED LIST changes: +IOHEXOL 180 MG/ML 10 ML VIAL. ONE; +methylPREDNISolone ACETATE 40 MG/ML VIAL. ONE; +methylPREDNISolone ACETATE 80 MG/ML VIAL. ONE
--- NOTE | 2020-08-07 13:12 | PDOC1 ---
INITIAL PAIN CONSULT DATE OF SERVICE: DOS: DATE: 08/07/20 TIME: 13:06 CHIEF COMPLAINT: Chief Complaint: Low back and left lower extremity pain HISTORY OF PRESENT ILLNESS: 69-year-old female presents with history of pain low back left lower extremity for many years worse over the past 6 months or so increasing without any specific injury or accident that she is aware but getting worse in the low back rating the posterior gluteus posterior lateral thigh lateral anterior thigh anteromedial thigh lateral knee and medial knee as well as into the medial lower leg. Patient reports is worse with walking and standing especially getting up from a seated position wakes her from sleep release once or twice a night patient reports is not effective bowel bladder control but does affect her ability to walk for significantly she does have a cane but not bring it with her today. Patient reports she uses intermittently otherwise hold onto things like parked cars handrails in the [place]. Patient describes the pain is constant sharp in the back stabbing and shooting in the left lower extremity changes during the day with position change and is an aching pain in the low back. P atient rates her disability rating 0-10 10 being the worst is an 8 with family home responsibilities and social activity 9 with recreation 7 with self-care and 0 with life support activities. Did have an MRI scan lumbar spine dated July 03, 2020 showing moderate levoscoliosis in the lumbar distribution with mild to moderate narrowing severe narrowing of the right L2-3 and left L4-5 neural foramina and multilevel lumbar degenerative disc disease greatest at L1-2. Patient has tried physical therapies in the past also doing exercise on her own currently and has had trigger point injections but without specific reduction in pain patient is taking oxycodone which does help decrease pain by about 50% does not last very long. Patient ports no loss of motor function no bowel or bladder incontinence or other complaints. PAST MEDICAL HISTORY: PMH: Arthritis, gastroesophageal reflux PREVIOUS SURGERIES: Past Surgical Hx: Left knee replacement 2017, left knee tendon surgery 2018, left knee tendon repair placement 2019, hysterectomy 1979, cholecystectomy and appendectomy, bilateral cataract extraction 2011 CURRENT MEDICATIONS: Current Meds: Active Scripts Medications Dose Route/Sig Max Daily Dose Days Date Category Percocet 5-325 Mg Tablet (Oxycodone/Acetaminophen) 1 Each Tablet 1 Tab PO QIDPRN PRN MDD 4 Tablet(s) 30 03/30/20 Reported Vitamin D3 (Cholecalciferol (Vitamin D3)) 25 Mcg Tablet 25 Mcg PO DAILY 03/30/20 Reported Wellbutrin Xl (Bupropion Hcl) 300 Mg Tab.er.24h 300 Mg PO DAILY 07/09/18 Reported Protonix (Pantoprazole Sodium) 20 Mg Tablet.dr 20 Mg PO DAILY 07/09/18 Reported Atorvastatin Calcium 20 Mg Tablet 20 Mg PO DAILY 07/09/18 Reported Escitalopram Oxalate 20 Mg Tablet 20 Mg PO DAILY 03/18/14 Reported Lorazepam 0.5 Mg Tablet 1 Mg PO TID 10/08/13 Reported ALLERGIES; Allergies: Coded Allergies: No Known Drug Allergies (Unverified , 03/31/20) FAMILY HISTORY: Family Hx: Heart disease SOCIAL HISTORY: Social Hx: Patient does not chase alcohol does not smoke not use any illegal illicit recreational drugs is single lives locally in [place] and is currently retired has 1 child living at home with her. REVIEW OF SYSTEMS: ROS: Positive for those items mentioned in history of present illness, all systems are reviewed, otherwise negative, is complete full and well-documented on patient's chart PHYSICAL EXAM: VS: Blood pressure is 129/87 pulse 65 respiration 16 temperature 98.5 F height is 5 foot 4 inches weight 178 pounds PE: PHYSICAL EXAMINATION: GENERAL: The patient is awake, alert, oriented, appropriate, very pleasant dem eanor HEENT: Shows normocephalic, atraumatic. Extraocular movements are intact and symmetrical. Oral cavity: Mucous membranes moist and pink. NECK: Shows anterior throat supple without palpable lymphadenopathy noted. Swallow reflex symmetrical. CHEST: Shows normal on inspection. Breath sounds are clear bilaterally, no rales rhonchi or wheezes auscultated. HEART: Shows S1, S2 clear. No murmurs auscultated. ABDOMEN: Soft, nontender, nondistended, obese. No palpable organomegaly is noted. No rebound or guarding demonstrated. BACK: Shows spine grossly in the midline with leftward curvature in the lumbar distribution. Normal-appearing cervical lordotic curvature. There is slightly increased thoracic kyphosis, some minor flattening of the lumbar lordotic curvature. Lumbar paraspinous muscles show symmetrical on inspection, on palpation shows some moderate tenderness diffusely throughout the upper, middle and lower distribution of the paraspinous muscles bilaterally and also into the lower thoracic paraspinous musculature, firm and tender, without specific trigger points, without radiation of pain. The patient has good rotational motion of the lumbar spine, both laterally as well as extension and flexion without significant difficulty. No tenderness over the spinous processes, sacrum or sacroiliac regions. EXTREMITIES: Lower extremities show deep tendon reflexes 1+ in the patellar and tendo calcaneus tendons. Motor exam is 5 on a scale of 5 with right dorsiflexion, extension, quadriceps and hamstring flexion and 4/5 on the left. Peripheral pulses are 1+ posterior tibial. No peripheral edema is noted bilaterally. Lower extremities are warm and dry to touch, equal in color and appearance. Straight leg raise noted to be negative bilaterally. Gaenslen's and Julio Cesar's maneuvers are negative bilaterally as well. The patient is able to stand, stand on her toes but loses balance easily walks with a slight favoring gait does appear to favor the left lower extremity but not use any assistive devices to ambulate on a short distance in the office today.. SKIN: Shows warm and dry, good turgor. No edema. No sores, rashes or bruising throughout. IMPRESSION: Impression: 69-year-old female with long history low back and left lower extremity pain MRI scan lumbar spine as noted Arthritis Plan: Options were discussed with the patient occluding conservative medical management physical therapies and medical techniques and she would like to pursue interventional techniques. We discussed a lumbar epidural steroid injection using description as well as anatomical models to describe the procedure. Risks were discussed including but not limited to: Bleeding, infection, possibility of epidural hematoma and subsequent neurological compromise, dural puncture, headaches, spinal cord and/or nerve damage, side effects of steroid medication, and poor results regarding pain control. Patient understands wished to proceed. Patient will return to clinic in approximate 2 weeks for follow-up, was counseled as to return appointment activity level and side effects to be aware of. Procedure is lumbar epidural steroid injection under local anesthetic using sterile prep and drape at the L4-5 level using C-arm fluoroscopic guidance in both AP and lateral views medications injected is 120 mg Depo-Medrol + 10 mL preservative-free normal saline and 2 mL contrast- condition at discharge is stable patient tolerated procedure well had no complications. MALI CHILD MD Aug 07, 2020 13:12
== END | disposition home or self-care (01) ==
LOC: PNCL 10:42
PROVIDERS: ATTEND Anesthesiology
DX: M54.5 Low back pain (principal); M79.605 Pain in left leg; K21.9 Gastro-esophageal reflux disease without esophagitis; M19.90 Unspecified osteoarthritis, unspecified site; I10 Essential (primary) hypertension; E78.00 Pure hypercholesterolemia, unspecified; F41.9 Anxiety disorder, unspecified; F32.9 Major depressive disorder, single episode, unspecified; Z90.49 Acquired absence of other specified parts of digestive tract; Z90.710 Acquired absence of both cervix and uterus; Z98.890 Other specified postprocedural states; Z96.652 Presence of left artificial knee joint; Z79.899 Other long term (current) drug therapy; Z82.49 Family history of ischemic heart disease and other diseases of the circulatory system; Z72.89 Other problems related to lifestyle
CPT/HCPCS: 62323; J1030; J1040; Q9965

== ENCOUNTER → 2020-08-24 | Outpatient (CLI) | payer MEDICARE ==
[2020-08-08 01:00] VITALS: BP 110/66
[~2020-08-24] MED LIST changes: +BUPIVACAINE MPF 0.25% 10 ML VIAL. ONE; +IOHEXOL 180 MG/ML 10 ML VIAL. ONE; +methylPREDNISolone ACETATE 80 MG/ML VIAL. ONE
--- NOTE | 2020-08-24 11:57 | PDOC ---
Progress Note - Pain Clinic Date of Service: DOS: DATE: 08/24/20 TIME: 11:53 Diagnosis: Dx: Lumbar radiculopathy with lumbar degenerative disc disease and lumbar spinal stenosis Left knee joint pain History or Present Illness: HPI: 69-year-old female returns for follow-up status post lumbar epidural steroid injection x1. Patient reports minimal decrease in pain in the left lower extremity. Patient is visited with her neurosurgeon who is recommending selective nerve root block on the left at L4-5 to see if this may be a component of the left lateral knee pain. Patient ports still significant pain in the knee itself just superior and lateral to the joint itself and has had history of total knee replacement and 2 other surgical interventions of the left knee as well. Patient ports dull pain worse in the left leg with walking standing changing positions putting all of her weight on her left leg better with sitting or laying down but does awaken her from sleep better in 4 to 5 hours. Patient reports her pain is a 9 on scale 10 is worse over the past week 8 on average 5 its least is an 8 today. Patient scribes aching sharp dull tight stabbing in the left lateral thigh and knee. Patient reports no new motor or sensory deficits no new bowel or bladder incontinence or other complaints. Physical Exam: VS: Pressure is 133/79 pulse 63 respirations are 16 temperature 90.5 F weight is 183 pounds PE: PHYSICAL EXAMINATION: GENERAL: The patient is awake, alert, oriented, appropriate, very pleasant demeanor HEENT: Shows normocephalic, atraumatic. Extraocular movements are intact and symmetrical. Oral cavity: Mucous membranes moist and pink. NECK: Shows anterior throat supple without palpable lymphadenopathy noted. Swallow reflex symmetrical. CHEST: Shows normal on inspection. Breath sounds are clear bilaterally. HEART: Shows S1, S2 clear. No murmurs auscultated. ABDOMEN: Soft, nontender, nondistended, obese. No palpable organomegaly is noted. No rebound or guarding demonstrated. BACK: Shows spine grossly in the midline. Normal-appearing cervical lordotic curvature. There is slightly increased thoracic kyphosis, some minor flattening of the lumbar lordotic curvature. Lumbar paraspinous muscles show symmetrical on inspection, on palpation shows some moderate tenderness diffusely throughout the upper, middle and lower distribution of the paraspinous muscles, but without specific trigger points, without radiation of pain. The patient has good rotational motion of the lumbar spine, both laterally as well as extension and flexion without significant difficulty. No tenderness over the spinous processes, sacrum or sacroiliac regions. EXTREMITIES: Lower extremities show deep tendon reflexes 1+ in the patellar and tendo calcaneus tendons. Motor exam is 5 on a scale of 5 with right dorsiflexion, extension, quadriceps and hamstring flexion and 4/5 on the left. Peripheral pulses are 1 posterior tibial. No peripheral edema is noted bilaterally. Lower extremities are warm and dry to touch, equal in color and appearance. SKIN: Shows warm and dry, good turgor. No edema. No sores, rashes or bruising throughout. Procedure: Procedure: Options were discussed with the patient. Patient chart was reviewed as her current medication regimen updated current review of systems updated today as well. We will proceed with a left L4-5 transforaminal selective nerve root injection with fluoroscopic guidance. Risks were discussed including but not limited to: Bleeding, infection, possibility of epidural hematoma and subsequent neurological compromise, dural puncture, headaches, spinal cord and/or nerve damage, potential injection of vertebral artery at that level and permanent ischemic damage, side effects of steroid medication, and poor results regarding pain control. Patient understands wished to proceed. Patient will return to clinic in approximate 2 weeks for follow-up, was counseled as to return appointment activity level and side effects to be aware of. Medication Injected: Med Injected: Under sterile prep and drape patient was placed in prone position using C-arm fluoroscopic guidance to identify the L4-5 oblique and slightly cephalad angled C arm. The left L4-5 target was identified and using lidocaine for anesthetizing the skin 22-gauge Anibal pencil point needle was then used to enter the skin and into the subcutaneous tissues using direct C-arm fluoroscopic guidance to guide the needle into the transforaminal aspect of the left L4-5, vertebrae this was confirmed with lateral views showing the needle tip in the superior aspect of the paravertebral region. Aspiration was noted to be negative, -1.5 cc of contrast was then injected with good spread both medially into the epidural space as well as laterally along the nerve root without uptake and without distribution and uptake on digital subtraction. At this time, a solution containing 2 cc of 0.25% bupivacaine and 80 mg of Depo-Medrol was then injected. Needle was withdrawn and sterile bandage was applied. Patient tolerated procedure well had no immediate complications Condition at Discharge: Condition at Discharge: Condition at discharge stable, patient tolerated procedure well and had no c omplications. MALI CHILD MD Aug 24, 2020 11:57
== END | disposition home or self-care (01) ==
LOC: PNCL 10:51
PROVIDERS: ATTEND Anesthesiology
DX: M51.16 Intervertebral disc disorders with radiculopathy, lumbar region (principal); M48.061 Spinal stenosis, lumbar region without neurogenic claudication; M25.562 Pain in left knee; I10 Essential (primary) hypertension; E78.00 Pure hypercholesterolemia, unspecified; K21.9 Gastro-esophageal reflux disease without esophagitis; F41.9 Anxiety disorder, unspecified; F32.9 Major depressive disorder, single episode, unspecified; Z96.652 Presence of left artificial knee joint; Z90.49 Acquired absence of other specified parts of digestive tract; Z98.890 Other specified postprocedural states; Z90.710 Acquired absence of both cervix and uterus; Z82.49 Family history of ischemic heart disease and other diseases of the circulatory system
CPT/HCPCS: 64483; J1040; J3490; Q9965

== ENCOUNTER → 2020-09-07 | Outpatient (CLI) | payer MEDICARE ==
[2020-08-08 01:00] VITALS: BP 110/66
[~2020-09-07] MED LIST changes: +methylPREDNISolone ACETATE 40 MG/ML VIAL. ONE; -methylPREDNISolone ACETATE 80 MG/ML VIAL. ONE
--- NOTE | 2020-09-07 12:03 | PDOC ---
Progress Note - Pain Clinic Date of Service: DOS: DATE: 09/07/20 TIME: 11:58 Diagnosis: Dx: Lumbar radiculopathy with lumbar spinal stenosis lumbar degenerative disease Left knee joint pain status post total knee arthroplasty History or Present Illness: HPI: 69-year-old female returns follow-up status post lumbar epidural steroid injection and left L4-5 transforaminal selective nerve root block. Patient reports no improvement in her left knee pain with either the injections with pain in the left lateral aspect of the superior aspect of the joint of the knee. Patient reports a 9 on scale 10 is worse over the past week 7 on average 6 at its least and is a 7 today patient ported aching sharp dull tight stabbing on and off in intensity worse with walking standing weightbearing changing positions getting up from a seated position patient reports she is losing balance because of the pain on the left leg and wakes her from sleep about every 7-8 hours at night. Patient reports no new motor or sensory deficits no new deficits. Physical Exam: VS: Blood pressure is 131/57 pulse 68 respirations 18 temperature 90.4 F weight is 176 pounds PE: PHYSICAL EXAMINATION: GENERAL: The patient is awake, alert, oriented, appropriate, very pleasant demeanor HEENT: Shows normocephalic, atraumatic. Extraocular movements are intact and symmetrical. Oral cavity: Mucous membranes moist and pink. NECK: Shows anterior throat supple without palpable lymphadenopathy noted. Swallow reflex symmetrical. CHEST: Shows normal on inspection. Breath sounds clear bilaterally. HEART: Shows S1, S2 clear. BACK: Shows spine grossly in the midline. Normal-appearing cervical lordotic curvature. There is slightly increased thoracic kyphosis, some minor flattening of the lumbar lordotic curvature. Lumbar paraspinous muscles show symmetrical on inspection, on palpation shows some moderate tenderness diffusely throughout the upper, middle and lower distribution of the paraspinous muscles, but without specific trigger points, without radiation of pain. The patient has good rotational motion of the lumbar spine, both laterally as well as extension and flexion without significant difficulty. EXTREMITIES: Lower extremities show deep tendon reflexes 1+ in the patellar and tendo calcaneus tendons. Motor exam is 5 on a scale of 5 with right dorsiflexion, extension, quadriceps and hamstring flexion and 4/5 on the left. Peripheral pulses are 1+ posterior tibial. No peripheral edema is noted bilaterally. Patient's left knee shows significant tenderness, as well as well- healed surgical scarring, on the left lateral aspect of the superior aspect of the femoral condyle. No specific radiation is demonstrated. No tenderness on the medial aspect of the upper condyle or the medial aspect of the tibial condyle. Lower extremities are warm and dry to touch, equal in color and appearance. SKIN: Shows warm and dry, good turgor. No edema. No sores, rashes or bruising throughout. Procedure: Procedure: Options were discussed with the patient. Patient's old chart was reviewed as her current medication regimen updated current review of systems updated today as well. We will proceed with a left superior lateral genicular block with fluoroscopic guidance. Risks were discussed including but not limited to bleeding infection possibility of intravascular injection sequelae spread local anesthetic numbness side effects of steroid medication exposure fluoroscopy as well as poor results regarding pain control. Patient understands wished to proceed. Patient return to clinic in approximate 2 weeks for follow-up was counseled as return appointment activity level and side effects to be aware of. Medication Injected: Med Injected: Under sterile prep and drape patient's left knee was visualized using C-arm fluoroscopic guidance and the left superior lateral condyle was identified and using 1% lidocaine was anesthetized over this region. Using a 22-gauge stylette and quickie needle, needle was placed two thirds distance anterior posterior at the level of the superior lateral genicular nerve. Using 1.5 cc of contrast showed no uptake this was followed by 2 cc of 0.25% ropivacaine and 40 mg Depo- Medrol after negative aspiration. Needle withdrawn and sterile bandage was applied. Patient tolerated procedure well and had no complications. Condition at Discharge: Condition at Discharge: Condition at discharge is stable, patient tolerated the procedure well, had no complications. MALI CHILD MD Sep 07, 2020 12:03
== END | disposition home or self-care (01) ==
LOC: PNCL 11:04
PROVIDERS: ATTEND Anesthesiology
DX: M25.562 Pain in left knee (principal); M51.16 Intervertebral disc disorders with radiculopathy, lumbar region; M48.061 Spinal stenosis, lumbar region without neurogenic claudication; I10 Essential (primary) hypertension; E78.00 Pure hypercholesterolemia, unspecified; K21.9 Gastro-esophageal reflux disease without esophagitis; M19.90 Unspecified osteoarthritis, unspecified site; F41.9 Anxiety disorder, unspecified; F32.9 Major depressive disorder, single episode, unspecified; Z96.652 Presence of left artificial knee joint; Z90.710 Acquired absence of both cervix and uterus; Z90.49 Acquired absence of other specified parts of digestive tract; Z98.890 Other specified postprocedural states; Z79.899 Other long term (current) drug therapy; Z82.49 Family history of ischemic heart disease and other diseases of the circulatory system
CPT/HCPCS: 64454; J1030; J3490; Q9965; 64450

== ENCOUNTER 2020-09-24 20:06 | Emergency (ER) | payer MEDICARE ==
[~2020-09-24] VITALS: Ht 162.6 cm; Wt 79.5 kg
[~2020-09-24 20:06] MED LIST changes: -BUPIVACAINE MPF 0.25% 10 ML VIAL. ONE; -CHOL10003 PO; +CHOL10004 PO; -IOHEXOL 180 MG/ML 10 ML VIAL. ONE; +LISI10TA16 PO; -LISI10TA2 PO; -methylPREDNISolone ACETATE 40 MG/ML VIAL. ONE
[2020-09-24] MEDS ORDERED: DIPH,PERTUSS(ACELL),TET VAC/PF 0.5 ML SYRINGE. VAX IM ONE (21:00)
--- NOTE | 2020-09-24 21:05 | RAD ---
3 views right hand HISTORY: Bit by dog AP lateral oblique views There is air in the soft tissues medially. The visualized osseous structures appear intact. There is no radiopaque foreign body. There is evidence of osteoarthrosis. IMPRESSION: No fracture or radiopaque foreign body. Electronically signed by: Nain Delvalle III, MD (09/24/2020 9:03 PM) [facility]
--- NOTE | 2020-09-24 21:13 | ED.ADGEN ---
Past Medical History Past Medical History: Anxiety, High Cholesterol, Hypertension Past Surgical History: Cholecystectomy, Hysterectomy, Knee Replacement, Other Additional Past Surgical Histo: Cataract surgery Smoking Status: Never Smoker Alcohol Use: None Drug Use: None General Adult EDM: Chief Complaint: ANIMAL BITE HPI: HPI: Patient is a 69 year old female who presents to the emergency department via EMS with complaints of a dog bite to her right hand, and dog scratches to her left leg, left flank, right forearm, and left arm. Patient states that she had gone over to her grandsons house to let the dogs out when one of the dogs attacked her great grandchild that was in his bouncer. Grandmother reports that she put her right hand inside of the dog's mouth to get it to stop attacking the child. She complains of right hand pain. Patient states that she is not sure when her last tetanus shot was. She reports that the dog has been taken into animal control custody. She denies any numbness, tingling, or decreased sensation of her extremities. Patient denies any decreased range of motion of her right hand. She currently rates her pain 8 out of 10 on the pain scale, she denies any alleviating factors. Patient is tearful and anxious states she is very worried about her great-grandchild. Review of Systems: Review of Systems: Complete ROS is negative unless otherwise noted in HPI. Current Medications: Current Medications Medications (Trade) Dose Ordered Sig/Stu Start Time Stop Time Status Last Admin Dose Admin Diphtheria/ Tetanus/Acell Pertussis (ADACEL TDap SYRINGE) 0.5 ml ONCE ONCE 09/24/20 21:00 09/24/20 21:01 DC 09/24/20 21:03 0.5 ML Lorazepam (Ativan Inj) 0.5 mg 1X ONCE 09/24/20 21:30 09/24/20 21:31 DC 09/24/20 21:43 0.5 MG Neomycin/ Polymyxin/ Bacitracin (Triple Antibiotic Ointment) 5 pkt 1X ONCE 09/24/20 21:15 09/24/20 21:16 DC 09/24/20 21:21 5 PKT Allergies: Allergies: Allergies Coded Allergies Type Severity Reaction Last Updated Verified No Known Drug Allergies 03/31/20 No Physical Exam: PE: See Above Constitutional: Well developed, well nourished, moderate distress, tearful, crying HENT: Normocephalic, atraumatic, bilateral external ears normal, nose normal. [] Eyes: PERRLA, EOMI, conjunctiva normal, no discharge. [] Neck: Normal range of motion, no stridor. [] Cardiovascular:Heart rate regular rhythm Lungs & Thorax: Respirations even and unlabored, no retractions, no respiratory distress Skin: Warm, dry, no erythema, no rash; multiple scratches to left flank and left upper thigh as well as bilateral forearms, 2 puncture wounds noted to the volar aspect of the left hand third digit, skin tear to the right forearm, no bleeding or visible foreign bodies at any of the sites. [] Extremities: Right hand: Tenderness to palpation proximal to the third digit, no crepitus, no obvious deformity, sensation intact, no cyanosis, no clubbing, ROM intact, no edema. [] Neurologic: Alert and oriented X 3, normal motor function, normal sensory function, no focal deficits noted. [] Psychologic: Affect normal, judgement normal, mood normal. [] Current Patient Data: Vital Signs: Vital Signs Date Time Temp Pulse Resp B/P (MAP) Pulse Ox O2 Delivery O2 Flow Rate FiO2 09/24/20 20:10 99.1 96 24 136/98 (111) 95 Room Air 99.1 EKG: EKG: [] Heart Score: Risk Factors: Risk Factors: DM, Current or recent (<one month) smoker, HTN, HLP, family history of CAD, obesity. Risk Scores: Score 0 - 3: 2.5% MACE over next 6 weeks - Discharge Home Score 4 - 6: 20.3% MACE over next 6 weeks - Admit for Clinical Observation Score 7 - 10: 72.7% MACE over next 6 weeks - Early Invasive Strategies Radiology/Procedures: Radiology/Procedures: PROCEDURE: HAND RIGHT 3V 3 views right hand HISTORY: Bit by dog AP lateral oblique views There is air in the soft tissues medially. The visualized osseous structures appear intact. There is no radiopaque foreign body. There is evidence of osteoarthrosis. IMPRESSION: No fracture or radiopaque foreign body. [] Course & Med Decision Making: Course & Med Decision Making Pertinent Labs and Imaging studies reviewed. (See chart for details) 69-year-old female presented for evaluation after being attacked by a dog X-ray right hand is negative for any acute findings. The patient's wounds were cleansed by the nurse, antibiotic ointment and dressings were applied following wound cleansing. Patient's tetanus was updated. Patient was very anxious and tearful in the ER, she was given 2 doses of Ativan 0.5 mg IV while in the emergency department. [] Dragon Disclaimer: Dragon Disclaimer: This electronic medical record was generated, in whole or in part, using a voice recognition dictation system. Departure Departure Impression: Primary Impression: Dog bite of hand without complication Additional Impressions: Dog scratch Bitten by dog, initial encounter Need for Tdap vaccination Anxiety Disposition: DC HOME SELF CARE/HOMELESS Condition: STABLE Referrals: JOVANI MATTHEW MD (PCP) Patient Instructions: Animal Bite, [id number] Additional Instructions: Fill the prescriptions and take them as directed. Keep the wounds clean and dry, apply it a new bandage with antibiotic ointment twice a day and as needed beginning tomorrow evening. Follow-up with Dr. Matthew in 1 to 2 days to have the wounds rechecked. Return to the ER if you develop a fever or your symptoms worsen. Scripts Lorazepam (ATIVAN) 0.5 Mg Tablet 0.5 MG PO TID PRN for ANXIETY for 4 Days, #10 TAB 0 Refills Prov: ANNA FISHER MAGAZINE FILLER 09/24/20 Amoxicillin/Potassium Clav (AUGMENTIN 875-125 TABLET) 1 Each Tablet 1 TAB PO BID for 7 Days, #14 TAB 0 Refills Prov: ANNA FISHER MAGAZINE FILLER 09/24/20 Problem Qualifiers Primary Impression: Dog bite of hand without complication Encounter type: initial encounter Laterality: right Qualified Codes: S61.451A - Open bite of right hand, initial encounter; W54.0XXA - Bitten by dog, initial encounter ANNA FISHER MAGAZINE FILLER Sep 24, 2020 21:13
--- NOTE | 2020-09-24 21:13 | ED.ADGEN ---
Past Medical History Past Medical History: Anxiety, High Cholesterol, Hypertension Past Surgical History: Cholecystectomy, Hysterectomy, Knee Replacement, Other Additional Past Surgical Histo: Cataract surgery Smoking Status: Never Smoker Alcohol Use: None Drug Use: None General Adult EDM: Chief Complaint: ANIMAL BITE HPI: HPI: Patient is a 69 year old [f__sex] who presents with [] Review of Systems: Review of Systems: Constitutional: Denies fever or chills. [] Eyes: Denies change in visual acuity. [] HENT: Denies nasal congestion or sore throat. [] Respiratory: Denies cough or shortness of breath. [] Cardiovascular: Denies chest pain or edema. [] GI: Denies abdominal pain, nausea, vomiting, bloody stools or diarrhea. [] : Denies dysuria. [] Musculoskeletal: Denies back pain or joint pain. [] Integument: Denies rash. [] Neurologic: Denies headache, focal weakness or sensory changes. [] Endocrine: Denies polyuria or polydipsia. [] Lymphatic: Denies swollen glands. [] Psychiatric: Denies depression or anxiety. [] Current Medications: Current Medications Medications (Trade) Dose Ordered Sig/Stu Start Time Stop Time Status Last Admin Dose Admin Diphtheria/ Tetanus/Acell Pertussis (ADACEL TDap SYRINGE) 0.5 ml ONCE ONCE 09/24/20 21:00 09/24/20 21:01 DC 09/24/20 21:03 0.5 ML Lorazepam (Ativan Inj) 0.5 mg 1X ONCE 09/24/20 20:15 09/24/20 20:18 DC 09/24/20 20:27 0.5 MG Neomycin/ Polymyxin/ Bacitracin (Triple Antibiotic Ointment) 5 pkt 1X ONCE 09/24/20 21:15 09/24/20 21:16 DC 09/24/20 21:21 5 PKT Allergies: Allergies: Allergies Coded Allergies Type Severity Reaction Last Updated Verified No Known Drug Allergies 03/31/20 No Physical Exam: PE: Constitutional: Well developed, well nourished, no acute distress, non-toxic appearance. [] HENT: Normocephalic, atraumatic, bilateral external ears normal, oropharynx moist, no oral exudates, nose normal. [] Eyes: PERRLA, EOMI, conjunctiva normal, no discharge. [] Neck: Normal range of motion, no tenderness, supple, no stridor. [] Cardiovascular:Heart rate regular rhythm, no murmur [] Lungs & Thorax: Bilateral breath sounds clear to auscultation [] Abdomen: Bowel sounds normal, soft, no tenderness, no masses, no pulsatile mas ses. [] Skin: Warm, dry, no erythema, no rash. [] Back: No tenderness, no CVA tenderness. [] Extremities: No tenderness, no cyanosis, no clubbing, ROM intact, no edema. [] Neurologic: Alert and oriented X 3, normal motor function, normal sensory function, no focal deficits noted. [] Psychologic: Affect normal, judgement normal, mood normal. [] Current Patient Data: Vital Signs: Vital Signs Date Time Temp Pulse Resp B/P (MAP) Pulse Ox O2 Delivery O2 Flow Rate FiO2 09/24/20 20:10 99.1 96 24 136/98 (111) 95 Room Air 99.1 EKG: EKG: [] Heart Score: Risk Factors: Risk Factors: DM, Current or recent (<one month) smoker, HTN, HLP, family history of CAD, obesity. Risk Scores: Score 0 - 3: 2.5% MACE over next 6 weeks - Discharge Home Score 4 - 6: 20.3% MACE over next 6 weeks - Admit for Clinical Observation Score 7 - 10: 72.7% MACE over next 6 weeks - Early Invasive Strategies Radiology/Procedures: Radiology/Procedures: [] Course & Med Decision Making: Course & Med Decision Making Pertinent Labs and Imaging studies reviewed. (See chart for details) [] Dragon Disclaimer: Dragon Disclaimer: This electronic medical record was generated, in whole or in part, using a voice recognition dictation system. Departure Departure Referrals: JOVANI MATTHEW MD (PCP) ANNA FISHER TREASURY MANAGER Sep 24, 2020 21:13
[2020-09-24] MEDS ORDERED: NEOMY/BACITR/POLYMYXIN OINT PACKET. TP ONE (21:15)
[2020-09-24 21:48] VITALS: BP 121/60
[2020-09-24] MEDS ORDERED: LORA0.5T96 PO (22:01)
[2020-09-24] MEDS ORDERED: AMOX1TAB61 PO (22:01)
[2020-09-24] MEDS ORDERED: AMOXICILLIN/K CLAV 875/125MG TABLET. PO ONE (22:15)
[2020-10-13] MEDS ORDERED: TEMA15CA PO (14:11)
[2020-11-05] MEDS ORDERED: ASPI325T11 PO (13:01)
[2020-11-05] MEDS ORDERED: OXYC1TAB22 PO (13:02)
== END 2020-09-24 22:15 | disposition home or self-care (01) ==
LOC: ER 20:06
DX: S61.451A Open bite of right hand, initial encounter (principal); R20.2 Paresthesia of skin; F41.9 Anxiety disorder, unspecified; E78.00 Pure hypercholesterolemia, unspecified; I10 Essential (primary) hypertension; Z90.49 Acquired absence of other specified parts of digestive tract; Z90.710 Acquired absence of both cervix and uterus; Z98.890 Other specified postprocedural states; W54.0XXA Bitten by dog, initial encounter; Y93.89 Activity, other specified; Y92.89 Other specified places as the place of occurrence of the external cause; Y99.8 Other external cause status
CPT/HCPCS: 73130; 90471; 90715; 96374; 96376; 99284; J2060

== ENCOUNTER → 2020-10-13 | Outpatient (CLI) | payer MEDICARE ==
[2020-09-24 21:48] VITALS: BP 121/60
[~2020-10-13] MED LIST changes: +AMOX1TAB61 PO; +CHOL10003 PO; -CHOL10004 PO; +LORA0.5T96 PO
[2020-10-13 14:56] LABS: BASO % 1 % (0-3); EOS # 0.1 x10^3/uL (0.0-0.7); EOS % 3 % (0-3); HEMATOCRIT 40.4 % (36.0-47.0); HEMOGLOBIN 13.8 g/dL (12.0-15.5); LYMPH # 1.2 x10^3/uL (1.0-4.8); LYMPH % 27 % (24-48); MEAN CORPUSCULAR HEMOGLOBIN 30 pg (25-35); MEAN CORPUSCULAR HGB CONC 34 g/dL (31-37); MEAN CORPUSCULAR VOLUME 87 fL (79-100); MONO # 0.5 x10^3/uL (0.0-1.1); MONO % 10 % (0-9); NEUT # 2.7 x10^3/uL (1.8-7.7); NEUT % 59 % (31-73); PLATELET COUNT 173 x10^3/uL (140-400); RED BLOOD COUNT 4.64 x10^6/uL (3.50-5.40); RED CELL DISTRIBUTION WIDTH 15.6 % (11.5-14.5); WHITE BLOOD COUNT 4.6 x10^3/uL (4.0-11.0)
--- NOTE | 2020-10-13 15:00 | EKG ---
[facility] [address] [place] [address] Test Date: 2020-10-13 Test Time: 15:00:39 Pat Name: HUI LEVY Department: Room: Gender: F Cheese Weigher: ALICIA : 1950 Requested By: KELBY CAO Order Number: [id number] Reading MD: Sandip Gabriel MD Measurements Intervals [place] Rate: 66 P: 42 MA: 178 QRS: 54 QRSD: 70 T: 55 QT: 376 QTc: 396 Interpretive Statements SINUS RHYTHM Electronically Signed On 10-15-2020 10:26:48 BRAIN WAVE TECHNICIAN by Sandip Gabriel MD
[2020-10-13 15:06] LABS: PROTHROMBIN TIME PATIENT 13.8 SEC (11.7-14.0)
[2020-10-13 15:16] LABS: ANION GAP 9 (6-14); BLOOD UREA NITROGEN 9 mg/dL (7-20); CALCIUM 8.9 mg/dL (8.5-10.1); CARBON DIOXIDE 25 mmol/L (21-32); CHLORIDE 108 mmol/L (98-107); CREATININE 0.9 mg/dL (0.6-1.0); GFR 62.1; GLUCOSE 96 mg/dL (70-99); SODIUM 142 mmol/L (136-145)
[2020-10-13 15:25] LABS: C-REACTIVE PROTEIN < 0.5 mg/L (0-3.3)
--- NOTE | 2020-10-13 16:58 | RAD ---
EXAM: Chest, 2 views. HISTORY: Preoperative evaluation. COMPARISON: 07/09/2018 FINDINGS: 2 views of the chest are obtained. There is stable elevation of the left hemidiaphragm and a hiatal hernia. There is left lower lobe linear atelectasis or scarring. No pleural effusion or pneu mothorax is seen. The heart is normal in size. IMPRESSION: Left lower lobe atelectasis or scarring. Electronically signed by: Antoinette Sharp MD (10/13/2020 4:56 PM) [id number]
[2020-10-14 00:08] LABS: HEMOGLOBIN A1C 5.3 % (4.8-5.6)
== END ==
LOC: SURGPAT 13:50
PROVIDERS: ATTEND Orthopaedic Surgery
DX: Z01.818 Encounter for other preprocedural examination (principal); T84.9XXA Unspecified complication of internal orthopedic prosthetic device, implant and graft, initial encounter; M25.362 Other instability, left knee; Y84.8 Other medical procedures as the cause of abnormal reaction of the patient, or of later complication, without mention of misadventure at the time of the procedure; Y92.89 Other specified places as the place of occurrence of the external cause; Z96.652 Presence of left artificial knee joint
CPT/HCPCS: 36415; 71046; 80048; 82040; 82306; 83036; 85025; 85610; 85730; 86140; 87641; 93005

== ENCOUNTER → 2020-10-29 | Outpatient (CLI) | payer MEDICARE ==
[~2020-10-29] MED LIST changes: +OXYC1TAB22 PO
== END ==
LOC: LAB 13:51
PROVIDERS: ATTEND Orthopaedic Surgery
DX: Z01.812 Encounter for preprocedural laboratory examination (principal); T84.9XXA Unspecified complication of internal orthopedic prosthetic device, implant and graft, initial encounter; Z20.822 Contact with and (suspected) exposure to COVID-19; Y84.8 Other medical procedures as the cause of abnormal reaction of the patient, or of later complication, without mention of misadventure at the time of the procedure; Y92.89 Other specified places as the place of occurrence of the external cause
CPT/HCPCS: U0003